=== PATIENT | male | born 1940 | race African-American/Black ===

== ENCOUNTER 2016-10-28 12:06 | Inpatient (IN) | payer MEDICARE, MEDICAID ==
[~2016-10-28] VITALS: Ht 182.9 cm; Wt 86.2 kg
[~2016-10-28 12:06] MED LIST: ALDACTONE25 MG ORAL; ASPIR 8181 MG ORAL; BICALUTAMIDE50 MG ORAL; CEPHALEXIN500 MG ORAL; COREG3.125 MG ORAL; COSOPT1 DRO2 BOTH EYES; DEPAKOTE250 MG ORAL; DEPAKOTE250 MG PO; DEPAKOTE500 MG ORAL; DEPAKOTE500 MG PO; DOCUSATE SODIU100 MG ORAL; FAMOTIDINE20 MG ORAL; FLOMAX0.4 MG ORAL; IMODIUM2 MG ORAL; LISINOPRIL2.5 MG ORAL; LISINOPRIL5 MG ORAL; LORAZEPAM2 MG ORAL; MIRALAX17 GM ORAL; RISPERDAL1 MG PO; RISPERDAL2 MG ORAL; TEMAZEPAM15 MG ORAL; TEMAZEPAM30 MG ORAL; TRUSOPT10 ML BOTH EYES; TYLENOL650 MG/20. ORAL
[2016-10-28] MEDS ORDERED: ROBAFEN100 MG/5 M PO (13:16)
[2016-10-28] MEDS ORDERED: AZITHROMYCIN250 MG ORAL (13:16)
--- NOTE | 2016-10-28 13:27 | Emergency Room Report ---
History of Present Illness General Chief Complaint: General Complaint Source: Patient, Medical Record Present Illness HPI 76YOM walk-in with accidental fall last night at [facility]. Denies hitting head, LOC. States he tripped, landed on knees. Not c/o of any pain, trauma. Walking at baseline today. Denies precipitating chest pain, SOB, palpitations, abd pain, nausea/vomiting, urinary complaints. No complaints. per PMD Dr Tran. Patient with frequent falls lately. [facility] requesting pacer interrogation prior to DC back to facility. Allergies: Coded Allergies: No Known Allergies (Unverified , 08/20/15) Patient History Past Medical History: HTN, CVA/TIA, seizures Past Surgical History: pacemaker Pertinent Family History: none Social History: Denies: alcohol use, drug use, smoking Immunizations: UTD Reviewed Nursing Documentation: PMH: Agreed, PSxH: Agreed Nursing Documentation-PMH Past Medical History: No History, Except For Hx Cardiac Problems: Yes - pacemaker Hx Pacemaker: Yes Hx Cancer: No Hx Gastrointestinal Problems: Yes - GI disorder Hx Neurological Problems: Yes - Parkinsons Hx Seizures: Yes Review of Systems All Other Systems: negative except mentioned in HPI Physical Exam Vital Signs Date Time Temp Pulse Resp B/P Pulse Ox O2 Delivery O2 Flow Rate FiO2 10/28/16 12:33 97.9 94 16 107/68 96 Room Air Sp02 EP Interpretation: reviewed, normal General Appearance: normal inspection, well appearing, no apparent distress, alert, GCS 15, non-toxic Head: normocephalic, atraumatic Eyes: bilateral eye EOMI, bilateral eye PERRL ENT: normal ENT inspection, hearing grossly normal, normal voice Neck: normal inspection, full range of motion, supple, no bony tend Respiratory: normal inspection, lungs clear, normal breath sounds, no respiratory distress, no retraction, no wheezing Cardiovascular #1: regular rate, rhythm, no edema Gastrointestinal: normal inspection, normal bowel sounds, non tender, soft, no guarding, no hernia Genitourinary: no CVA tenderness Musculoskeletal: normal inspection, back normal, normal range of motion, Shyla' s Sign negative Neurologic: normal inspection, alert, oriented x3, responsive, baggage inspector III-XII nml as tested, motor strength/tone normal, speech normal Psychiatric: normal inspection, judgement/insight normal, mood/affect normal Skin: normal inspection Lymphatic: normal inspection Medical Decision Making Medicare Attestation I Nico Hughes MD hereby attest that the medical record entry for date of service, 05/31/16 accurately reflects signatures/notations that I made in my capacity as MD when I treated/diagnosed the above listed Medicare beneficiary. I attest that this information is true, accurate and complete to the best of my knowledge. I understand that any falsification, omission, or concealment of material fact may subject me to administrative, civil, or criminal liability. This patient warrants hospital admission for extreme of age and has a condition that cannot be treated as outpatient. Diagnostic Impression: Primary Impression: Fall Qualified Codes: W19.XXXA - Unspecified fall, initial encounter ER Course Frequent falls - Atraumatic - Troponin 0. No other metabolic abnormality - CBC pending at time of endorsement and change of shift - Patient admitted for pacemaker upgrade/interrogation. Endorsed to Dr Tran at 2pm for tele admission EKG Diagnostic Results Rate: normal, other - PVCs Rhythm: NSR ST Segments: no acute changes Rhythm Strip Diag. Results EP Interpretation: yes Rate: 79 Rhythm: NSR, no ectopy, other Chest X-Ray Diagnostic Results EP Interpretation: Yes Findings: no consolidation, no effusion, no pneumothorax, no acute cardiopulmonary disease, other - pacemaker Number of Views: 1 Last Vital Signs Date Time Temp Pulse Resp B/P Pulse Ox O2 Delivery O2 Flow Rate FiO2 10/28/16 12:33 97.9 94 16 107/68 96 Room Air Status: improved Disposition: ADMITTED INPATIENT Condition: Serious NICO HUGHES M.D. October 28, 2016 13:27
[2016-10-28 13:54] VITALS: BP 124/63
[2016-10-28 14:14] LABS: ALANINE AMINOTRANSFERASE 11 U/L (3-41); ANION GAP 13 (5-15); ASPARTATE AMINO TRANSFERASE 24 U/L (5-40); CALCIUM 9.6 mg/dL (8.6-10.2); CARBON DIOXIDE 28 mEQ/L (20-30); CHLORIDE 96 mEQ/L (98-107); HEMOLYSIS 7; POTASSIUM 4.2 mEQ/L (3.4-4.9); SODIUM 137 mEQ/L (135-145)
[2016-10-28 14:15] LABS: TROPONIN I < 0.30 ng/mL (<=0.30)
[2016-10-28 14:17] LABS: BASOPHILS % (AUTO) 0.8 % (0.0-2.0); LYMPHOCYTES % (AUTO) 34.6 % (20.0-45.0); MEAN CORPUSCULAR HEMOGLOBIN 29.7 PG (27.0-31.0); MEAN CORPUSCULAR HGB CONC 33.4 G/DL (32.0-36.0); MEAN CORPUSCULAR VOLUME 89 FL (80-99); MEAN PLATELET VOLUME 6.8 FL (6.5-10.1); NEUTROPHILS % (AUTO) 46.6 % (45.0-75.0); PLATELET COUNT 149 K/UL (150-450); RED BLOOD COUNT 4.49 M/UL (4.70-6.10); RED CELL DISTRIBUTION WIDTH 13.3 % (11.6-14.8); WHITE BLOOD COUNT 6.3 K/UL (4.8-10.8)
[2016-10-28 14:26] LABS: CKMB < 1.5 ng/mL (< 6.7)
[2016-10-28] MEDS ORDERED: Mylanta II UD 30ml ORAL PRN (14:45)
[2016-10-28] MEDS ORDERED: Morphine Sulfate 2mg/ml Inj IVP PRN (14:45)
[2016-10-28] MEDS ORDERED: Miralax 17gm pkt ORAL PRN (14:45)
[2016-10-28] MEDS ORDERED: Nitroglycerin Subl 0.4mg tab (Bottle Of 25) SL PRN (14:45)
[2016-10-28] MEDS ORDERED: LORazepam Inj 2mg/ml 1ml IV PRN (14:45)
[2016-10-28] MEDS ORDERED: DuoNeb 0.5-3(2.5)mg/3ml neb HHN PRN (14:45)
[2016-10-28 15:00] VITALS: BP 119/61
[2016-10-28 16:00] VITALS: BP 106/59
[2016-10-28 17:00] VITALS: BP 100/52
--- NOTE | 2016-10-28 17:37 | Cardiac Electrophysiology PN ---
Subjective Subjective [id number]. Jonathan/ELINA pacer interrogation pending, EF 20% will be repeated Objective Last 24 Hour Vital Signs Date Time Temp Pulse Resp B/P Pulse Ox O2 Delivery O2 Flow Rate FiO2 10/28/16 17:00 61 14 100/52 100 Room Air 10/28/16 16:00 61 14 106/59 100 Room Air 10/28/16 15:00 64 14 119/61 100 Room Air 10/28/16 13:54 64 14 124/63 100 Room Air 10/28/16 12:33 97.9 94 16 107/68 96 Room Air Laboratory Tests Test 10/28/16 13:50 White Blood Count 6.3 K/UL (4.8-10.8) Red Blood Count 4.49 M/UL (4.70-6.10) L Hemoglobin 13.3 G/DL (14.2-18.0) L Hematocrit 40.0 % (42.0-52.0) L Mean Corpuscular Volume 89 FL (80-99) Mean Corpuscular Hemoglobin 29.7 PG (27.0-31.0) Mean Corpuscular Hemoglobin Concent 33.4 G/DL (32.0-36.0) Red Cell Distribution Width 13.3 % (11.6-14.8) Platelet Count 149 K/UL (150-450) L Mean Platelet Volume 6.8 FL (6.5-10.1) Neutrophils (%) (Auto) 46.6 % (45.0-75.0) Lymphocytes (%) (Auto) 34.6 % (20.0-45.0) Monocytes (%) (Auto) 14.0 % (1.0-10.0) H Eosinophils (%) (Auto) 4.0 % (0.0-3.0) H Basophils (%) (Auto) 0.8 % (0.0-2.0) Sodium Level 137 mEQ/L (135-145) Potassium Level 4.2 mEQ/L (3.4-4.9) Chloride Level 96 mEQ/L (98-107) L Carbon Dioxide Level 28 mEQ/L (20-30) Anion Gap 13 (5-15) Blood Urea Nitrogen 15 mg/dL (7-23) Creatinine 1.0 mg/dL (0.7-1.2) Estimat Glomerular Filtration Rate mL/min (>60) Glucose Level 93 mg/dL (74-106) Calcium Level 9.6 mg/dL (8.6-10.2) Total Bilirubin 0.4 mg/dL (0.0-1.2) Aspartate Amino Transf (AST/SGOT) 24 U/L (5-40) Alanine Aminotransferase (ALT/SGPT) 11 U/L (3-41) Alkaline Phosphatase 59 U/L (40-129) Total Creatine Kinase 83 U/L (38-174) Creatine Kinase MB < 1.5 ng/mL (< 6.7) Creatine Kinase MB Relative Index Troponin I < 0.30 ng/mL (<=0.30) Total Protein 7.0 g/dL (6.6-8.7) Albumin 3.6 g/dL (3.5-5.2) Globulin 3.4 g/dL Albumin/Globulin Ratio 1.0 (1.0-2.7) Free Prostate Specific Antigen Pending Percent Free Prostate Specific Ag Pending Prostate Specific Antigen Total Pending FERCHO DIAZ October 28, 2016 17:37
--- NOTE | 2016-10-28 17:51 | History and Physical ---
History of Present Illness General Date patient seen: October 28, 2016 Reason for Hospitalization: General Complaint Present Illness HPI 76 year old male with hx of end-stage heart disease/ EF 20%, s/p place maker, walk-in with accidental fall last night at [facility]. Denies hitting head, LOC. States he tripped, landed on knees. Not c/o of any pain, trauma. Walking at baseline today. . He has been eating less recently and had his walk has not been very steady therefore [facility] requesting pacer interrogation prior to DC back to facility. Allergies: Coded Allergies: No Known Allergies (Unverified , 08/20/15) Medication History Scheduled Aspirin* (Aspir 81*), 81 MG ORAL DAILY, (Reported) Azithromycin* (Zithromax*), 250 MG ORAL DAILY, (Reported) Bicalutamide* (Bicalutamide*), 50 MG ORAL DAILY, (Reported) Carvedilol (Coreg), 3.125 MG ORAL EVERY 12 HOURS Cephalexin* (Keflex*), 500 MG ORAL EVERY 12 HOURS Divalproex Sodium* (Depakote*), 500 MG ORAL Q12HR Docusate Sodium* (Docusate Sodium*), 100 MG ORAL TWICE A DAY, (Reported) Dorzolamide HCl/Timolol Maleat (Dorzolamide-Timolol Eye Drops), 1 DROP BOTH EYES AM, (Reported) Famotidine (Famotidine), 20 MG ORAL TWICE A DAY, (Reported) Guaifenesin (Robafen), 100 MG PO EVERY 6 HOURS, (Reported) Lisinopril* (Lisinopril*), 2.5 MG ORAL BID, (Reported) Lorazepam* (Lorazepam*), 2 MG ORAL BEDTIME, (Reported) Polyethylene Glycol* (Miralax*), GM ORAL DAILY, (Reported) Risperidone* (Risperdal*), 4 MG ORAL DAILY, (Reported) Spironolactone (Aldactone), 25 MG ORAL DAILY Tamsulosin HCl (Flomax), 0.4 MG ORAL DAILY Temazepam (Temazepam*), 30 MG ORAL BEDTIME, (Reported) Scheduled PRN Acetaminophen (Acetaminophen), 650 MG ORAL Q8H PRN for Prn Headache/Temp > 101, (Reported) Loperamide HCl (Loperamide), 2 MG ORAL Q4H PRN for loose BM, (Reported) Patient History Healthcare decision maker Resuscitation status Advanced Directive on File No Past Medical/Surgical History Past Medical/Surgical History: (1) Elevated PSA (2) Seizure disorder (3) Pacemaker (4) Cardiomyopathy (5) CVA (cerebral vascular accident) Review of Systems All Other Systems: negative except mentioned in HPI Physical Exam General Appearance: cachetic Lines, tubes and drains: peripheral HEENT: normocephalic, atraumatic Neck: non-tender, normal alignment, supple Respiratory/Chest: chest wall non-tender, lungs clear, normal breath sounds Cardiovascular/Chest: normal peripheral pulses, normal rate Abdomen: normal bowel sounds, non tender Genitourinary/Rectal: normal genital exam Extremities: normal range of motion, non-tender Skin Exam: normal pigmentation Neurologic: radiologic tech II-XII grossly normal Last 24 Hour Vital Signs Date Time Temp Pulse Resp B/P Pulse Ox O2 Delivery O2 Flow Rate FiO2 10/28/16 17:00 61 14 100/52 100 Room Air 10/28/16 16:00 61 14 106/59 100 Room Air 10/28/16 15:00 64 14 119/61 100 Room Air 10/28/16 13:54 64 14 124/63 100 Room Air 10/28/16 12:33 97.9 94 16 107/68 96 Room Air Laboratory Tests Test 10/28/16 13:50 White Blood Count 6.3 K/UL (4.8-10.8) Red Blood Count 4.49 M/UL (4.70-6.10) L Hemoglobin 13.3 G/DL (14.2-18.0) L Hematocrit 40.0 % (42.0-52.0) L Mean Corpuscular Volume 89 FL (80-99) Mean Corpuscular Hemoglobin 29.7 PG (27.0-31.0) Mean Corpuscular Hemoglobin Concent 33.4 G/DL (32.0-36.0) Red Cell Distribution Width 13.3 % (11.6-14.8) Platelet Count 149 K/UL (150-450) L Mean Platelet Volume 6.8 FL (6.5-10.1) Neutrophils (%) (Auto) 46.6 % (45.0-75.0) Lymphocytes (%) (Auto) 34.6 % (20.0-45.0) Monocytes (%) (Auto) 14.0 % (1.0-10.0) H Eosinophils (%) (Auto) 4.0 % (0.0-3.0) H Basophils (%) (Auto) 0.8 % (0.0-2.0) Sodium Level 137 mEQ/L (135-145) Potassium Level 4.2 mEQ/L (3.4-4.9) Chloride Level 96 mEQ/L (98-107) L Carbon Dioxide Level 28 mEQ/L (20-30) Anion Gap 13 (5-15) Blood Urea Nitrogen 15 mg/dL (7-23) Creatinine 1.0 mg/dL (0.7-1.2) Estimat Glomerular Filtration Rate mL/min (>60) Glucose Level 93 mg/dL (74-106) Calcium Level 9.6 mg/dL (8.6-10.2) Total Bilirubin 0.4 mg/dL (0.0-1.2) Aspartate Amino Transf (AST/SGOT) 24 U/L (5-40) Alanine Aminotransferase (ALT/SGPT) 11 U/L (3-41) Alkaline Phosphatase 59 U/L (40-129) Total Creatine Kinase 83 U/L (38-174) Creatine Kinase MB < 1.5 ng/mL (< 6.7) Creatine Kinase MB Relative Index Troponin I < 0.30 ng/mL (<=0.30) Total Protein 7.0 g/dL (6.6-8.7) Albumin 3.6 g/dL (3.5-5.2) Globulin 3.4 g/dL Albumin/Globulin Ratio 1.0 (1.0-2.7) Free Prostate Specific Antigen Pending Percent Free Prostate Specific Ag Pending Prostate Specific Antigen Total Pending Height (Feet): 6 Weight (Pounds): 190 Medications Current Medications Medications (Trade) Dose Ordered Sig/Maureen Route PRN Reason Start Time Stop Time Status Last Admin Dose Admin Acetaminophen (Tylenol) 650 mg Q4H PRN ORAL fever 10/28/16 14:45 11/27/16 14:44 Al Hydroxide/Mg Hydroxide (Mylanta II) 30 ml Q6H PRN ORAL dyspepsia 10/28/16 14:45 11/27/16 14:44 Albuterol/ Ipratropium (DuoNeb 0.5-3(2.5)mg/3ml) 3 ml Q4H PRN HHN Shortness of Breath 10/28/16 14:45 11/02/16 14:44 Bicalutamide (Casodex) 50 mg DAILY ORAL 10/29/16 09:00 11/03/16 08:59 Carvedilol (Coreg) 3.125 mg EVERY 12 HOURS ORAL 10/28/16 21:00 11/27/16 20:59 UNV Clonidine HCl (Catapres) 0.1 mg Q4H PRN ORAL For High Blood Pressure 10/28/16 14:45 11/27/16 14:44 Dextrose (Dextrose 50%) STAT PRN IV Hypoglycemia 10/28/16 14:45 11/27/16 14:44 Divalproex Sodium (Depakote) 500 mg Q12HR ORAL 10/28/16 21:00 11/27/16 20:59 Heparin Sodium (Porcine) (Heparin 5000 units/ml) 5,000 units EVERY 12 HOURS SUBQ 10/28/16 21:00 11/27/16 20:59 Lorazepam (Ativan 2mg/ml 1ml) 0.5 mg Q4H PRN IV For Anxiety 10/28/16 14:45 11/04/16 14:44 Morphine Sulfate (Morphine Sulfate) 1 mg Q4H PRN IVP For Pain 7-10 10/28/16 14:45 11/04/16 14:44 Nitroglycerin (Ntg) 0.4 mg Q5M X 3 DOSES PRN SL Prn Chest Pain 10/28/16 14:45 11/27/16 14:44 Ondansetron HCl (Zofran) 4 mg Q6H PRN IVP Nausea & Vomiting 10/28/16 14:45 11/27/16 14:44 Polyethylene Glycol (Miralax) 17 gm HSPRN PRN ORAL Constipation 10/28/16 14:45 11/27/16 14:44 Risperidone (RisperDAL) 4 mg DAILY ORAL 10/29/16 09:00 11/28/16 08:59 Tamsulosin HCl (Flomax) 0.4 mg DAILY ORAL 10/29/16 09:00 11/28/16 08:59 Temazepam (Restoril) 15 mg HSPRN PRN ORAL Insomnia 10/28/16 14:45 11/04/16 14:44 Assessment/Plan Problem List: (1) Near syncope ICD Codes: R55 - Syncope and collapse SNOMED: 529894507 (2) End-stage systolic heart failure ICD Codes: I50.20 - Unspecified systolic (congestive) heart failure SNOMED: 767177707 (3) Seizure disorder ICD Codes: G40.909 - Epilepsy, unspecified, not intractable, without status epilepticus SNOMED: 139046064 (4) Cardiomyopathy ICD Codes: I42.9 - Cardiomyopathy, unspecified SNOMED: 87137863 (5) Elevated PSA ICD Codes: R97.2 - Elevated prostate specific antigen [PSA] SNOMED: 284245747, 977543982 (6) Pacemaker ICD Codes: Z95.0 - Presence of cardiac pacemaker SNOMED: 21162681, 917084881, 955652909 Assessment/Plan telemetry monitoring repeat echo pacer interrogation pt/ot swallow evaluation RUIZ HOPPER October 28, 2016 17:51
[2016-10-28 18:12] VITALS: BP 128/64
[2016-10-28 20:28] VITALS: BP 101/43
[2016-10-28] MEDS: Heparin 5000 units/ml inj SUBQ SCH (21:00)
[2016-10-29 00:05] VITALS: BP 115/73
--- NOTE | 2016-10-29 03:18 | Consultation ---
DATE OF CONSULTATION: 10/28/2016 CARDIOLOGY CONSULTATION CONSULTING PHYSICIAN: Kevin Johnson M.D. REFERRING PHYSICIAN: Maria Isabel Tran M.D. REASON FOR CONSULTATION: Congestive heart failure and evaluation of the patient's pacemaker. HISTORY OF PRESENT ILLNESS: The patient is a 76-year-old gentleman with a history of hypertension, congestive heart failure, history of Jonathan permanent pacemaker placement, was brought to the emergency room after a fall. The patient denies loss of consciousness. In the emergency room, the patient's blood pressure was 107/68 with a pulse of 94 and respirations of 16. At the time of my evaluation, the patient is in the emergency room. Denies any chest pain or palpitations, and he states that he tripped and landed on his knees. REVIEW OF SYSTEMS: Review of systems was thoroughly performed and was negative other than what was mentioned in the history of present illness. PAST MEDICAL HISTORY: 1. Hypertension. 2. Congestive heart failure. 3. History of Jonathan permanent pacemaker implantation. 4. Seizure disorder. 5. History of TIA. FAMILY HISTORY: Noncontributory. SOCIAL HISTORY: Does not smoke or drink alcohol. PHYSICAL EXAMINATION: VITAL SIGNS: Blood pressure is 107/68, pulse 94, respirations 16, and temperature 97.9. HEAD AND NECK: Shows mild JVD. LUNGS: Decreased breath sounds. CARDIOVASCULAR: Shows regular S1 and S2 with no gallop or murmur. Pacemaker is in the left subclavian. ABDOMEN: Soft. EXTREMITIES: Has 1+ pitting edema. LABORATORY AND DIAGNOSTIC DATA: Labs show a white count of 6.2, hemoglobin 13.2, hematocrit 40, and platelet count is 440,000. Sodium 137, potassium was 4.2, BUN 15, and creatinine 1. Troponin is negative. ASSESSMENT AND PLAN: 1. Status post fall. The patient denies loss of consciousness. We will get an echocardiogram to evaluate for ejection fraction and wall motion abnormality again. We will interrogate the pacemaker. The patient had cardiac arrhythmias. We will also completely rule out myocardial infarction protocol. 2. History of severe cardiomyopathy with ejection fraction of around 20%. The echocardiogram will be repeated, the previous examination was a year ago. At that time, the patient was on Coreg, lisinopril, and Aldactone. 3. Status post ELINA/Jonathan permanent pacemaker. The interrogation is pending. 4. History of seizure disorder. Thank you very much, Dr. Tran, for allowing me to participate in the care of this patient. Please do not hesitate to contact me for any questions regarding my evaluation. Kevin Johnson M.D. DR: CHRIS JOB#: [id number] CC:
[2016-10-29 03:47] VITALS: BP 148/88
[2016-10-29 08:00] VITALS: BP 117/62
[2016-10-29 08:06] LABS: BASOPHILS % (AUTO) 1.3 % (0.0-2.0); EOSINOPHILS % (AUTO) 4.7 % (0.0-3.0); LYMPHOCYTES % (AUTO) 41.5 % (20.0-45.0); MEAN CORPUSCULAR HEMOGLOBIN 30.3 PG (27.0-31.0); MEAN CORPUSCULAR VOLUME 89 FL (80-99); MEAN PLATELET VOLUME 6.6 FL (6.5-10.1); NEUTROPHILS % (AUTO) 39.5 % (45.0-75.0); PLATELET COUNT 152 K/UL (150-450); RED BLOOD COUNT 4.35 M/UL (4.70-6.10); RED CELL DISTRIBUTION WIDTH 13.3 % (11.6-14.8); WHITE BLOOD COUNT 5.4 K/UL (4.8-10.8)
[2016-10-29] MEDS: Heparin 5000 units/ml inj SUBQ SCH (08:24)
[2016-10-29 08:25] LABS: INR 1.1 (0.9-1.1); PROTHROMBIN TIME 10.8 SEC (9.30-11.50)
[2016-10-29 08:26] LABS: TROPONIN I < 0.30 ng/mL (<=0.30)
[2016-10-29] MEDS ORDERED: Bicalutamide 50mg tab ORAL SCH (09:00)
[2016-10-29] MEDS ORDERED: Tamsulosin 0.4mg cap ORAL SCH (09:00)
[2016-10-29 09:11] LABS: ALANINE AMINOTRANSFERASE 9 U/L (3-41); ALBUMIN/GLOBULIN RATIO 0.9 (1.0-2.7); ANION GAP 17 (5-15); ASPARTATE AMINO TRANSFERASE 23 U/L (5-40); CALCIUM 9.6 mg/dL (8.6-10.2); CARBON DIOXIDE 23 mEQ/L (20-30); CHLORIDE 99 mEQ/L (98-107); CHOLESTEROL 157 mg/dL (< 200); CREATININE 0.9 mg/dL (0.7-1.2); HEMOLYSIS 8; LDL CHOLESTEROL (CALC.) 102 mg/dL (60-99); POTASSIUM 5.1 mEQ/L (3.4-4.9); SODIUM 139 mEQ/L (135-145); TOTAL PROTEIN 6.9 g/dL (6.6-8.7)
[2016-10-29 09:24] LABS: PSA % FREE >10.0 % (.); PSA FREE 0.01 ng/mL; PSA TOTAL <0.1 ng/mL (0.0-4.0)
--- NOTE | 2016-10-29 11:28 | Diagnostic Imaging Report ---
APPROVED REPORT CPT Code: 39470 Vascular Symptoms Dizziness and Vertigo CAROTID (BILATERAL) - Imaging reveals no significant plaque within the right and left extracranial carotid arteries. The Doppler spectral flow analysis is within normal limits throughout the extracranial carotid arteries bilaterally. VERTEBRAL- The vertebral arteries are within normal limits.
[2016-10-29 11:34] VITALS: BP 128/61
--- NOTE | 2016-10-29 12:38 | Diagnostic Imaging Report ---
Indications: Chest pain Technique: Portable AP chest Findings: Comparison: 10/30/2015 Cardiac silhouette remains upper limits of normal in size. Pulmonary vasculature remains within normal limits. Lungs and pleura remain clear. Mild elongation of the aortic arch, left chest wall pacemaker again noted.. IMPRESSION: No evidence of acute disease, unchanged Stable chronic changes as described
--- NOTE | 2016-10-29 13:24 | Pulmonology Progress Note ---
Assessment/Plan Problems: (1) Near syncope (2) End-stage systolic heart failure (3) Seizure disorder (4) Cardiomyopathy (5) Elevated PSA (6) Pacemaker Assessment/Plan pace maker was checked swallow study noted chopped food and nectar thick liquids simplify cardiac meds. Subjective ROS Limited/Unobtainable: No Interval Events: doing better Allergies: Coded Allergies: No Known Allergies (Unverified , 08/20/15) Objective Last 24 Hour Vital Signs Date Time Temp Pulse Resp B/P Pulse Ox O2 Delivery O2 Flow Rate FiO2 10/29/16 11:34 97.9 62 19 128/61 100 Room Air 10/29/16 08:25 65 117/62 10/29/16 08:00 97.7 65 20 117/62 97 Room Air 10/29/16 06:38 66 18 Room Air 10/29/16 03:52 61 10/29/16 03:47 98.3 62 19 148/88 94 Room Air 10/29/16 00:05 97.5 56 20 115/73 98 Room Air 10/28/16 23:47 64 10/28/16 21:00 101/43 10/28/16 20:28 98.2 60 21 101/43 95 Room Air 10/28/16 20:01 60 10/28/16 18:12 97.3 63 20 128/64 95 Room Air 10/28/16 17:45 68 20 111/58 99 Room Air 10/28/16 17:00 61 14 100/52 100 Room Air 10/28/16 16:00 61 14 106/59 100 Room Air 10/28/16 15:00 64 14 119/61 100 Room Air 10/28/16 13:54 64 14 124/63 100 Room Air Intake and Output 10/28/16 10/29/16 19:00 07:00 Intake Total 240 ml Output Total 500 ml Balance -260 ml Intake Oral 240 ml Output Urine Total 500 ml # Voids 3 General Appearance: WD/WN HEENT: normocephalic, atraumatic Respiratory/Chest: chest wall non-tender, lungs clear Cardiovascular: normal peripheral pulses, normal rate Abdomen: normal bowel sounds, soft, non tender Genitourinary: normal external genitalia Extremities: no cyanosis Skin: no rash Laboratory Tests 10/28/16 13:50: White Blood Count 6.3, Red Blood Count 4.49L, Hemoglobin 13.3L, Hematocrit 40.0L , Mean Corpuscular Volume 89, Mean Corpuscular Hemoglobin 29.7, Mean Corpuscular Hemoglobin Concent 33.4, Red Cell Distribution Width 13.3, Platelet Count 149L, Mean Platelet Volume 6.8, Neutrophils (%) (Auto) 46.6, Lymphocytes ( %) (Auto) 34.6, Monocytes (%) (Auto) 14.0H, Eosinophils (%) (Auto) 4.0H, Basophils (%) (Auto) 0.8, Sodium Level 137, Potassium Level 4.2, Chloride Level 96L, Carbon Dioxide Level 28, Anion Gap 13, Blood Urea Nitrogen 15, Creatinine 1.0, Estimat Glomerular Filtration Rate , Glucose Level 93, Calcium Level 9.6, Total Bilirubin 0.4, Aspartate Amino Transf (AST/SGOT) 24, Alanine Aminotransferase (ALT/SGPT) 11, Alkaline Phosphatase 59, Total Creatine Kinase 83, Creatine Kinase MB < 1.5, Creatine Kinase MB Relative Index , Troponin I < 0.30, Total Protein 7.0, Albumin 3.6, Globulin 3.4, Albumin/Globulin Ratio 1.0, Free Prostate Specific Antigen 0.01, Percent Free Prostate Specific Ag >10.0, Prostate Specific Antigen Total <0.1 10/29/16 06:50: White Blood Count 5.4, Red Blood Count 4.35L, Hemoglobin 13.2L, Hematocrit 38.7L , Mean Corpuscular Volume 89, Mean Corpuscular Hemoglobin 30.3, Mean Corpuscular Hemoglobin Concent 34.0, Red Cell Distribution Width 13.3, Platelet Count 152, Mean Platelet Volume 6.6, Neutrophils (%) (Auto) 39.5L, Lymphocytes ( %) (Auto) 41.5, Monocytes (%) (Auto) 13.0H, Eosinophils (%) (Auto) 4.7H, Basophils (%) (Auto) 1.3, Sodium Level 139, Potassium Level 5.1H, Chloride Level 99, Carbon Dioxide Level 23, Anion Gap 17H, Blood Urea Nitrogen 16, Creatinine 0.9, Estimat Glomerular Filtration Rate , Glucose Level 83, Calcium Level 9.6, Total Bilirubin 0.4, Aspartate Amino Transf (AST/SGOT) 23, Alanine Aminotransferase (ALT/SGPT) 9, Alkaline Phosphatase 56, Troponin I < 0.30, Total Protein 6.9, Albumin 3.4L, Globulin 3.5, Albumin/Globulin Ratio 0.9L, Prothrombin Time 10.8, Prothromb Time International Ratio 1.1, Activated Partial Thromboplast Time 26, Pro-B-Type Natriuretic Peptide 2700H, Triglycerides Level 78, Cholesterol Level 157, LDL Cholesterol 102H, HDL Cholesterol 39, Cholesterol/HDL Ratio 4.0, Thyroid Stimulating Hormone (TSH) 4.470 Current Medications Medications (Trade) Dose Ordered Sig/Maureen Route PRN Reason Start Time Stop Time Status Last Admin Dose Admin Acetaminophen (Tylenol) 650 mg Q4H PRN ORAL fever 10/28/16 14:45 11/27/16 14:44 Al Hydroxide/Mg Hydroxide (Mylanta II) 30 ml Q6H PRN ORAL dyspepsia 10/28/16 14:45 11/27/16 14:44 Albuterol/ Ipratropium (DuoNeb 0.5-3(2.5)mg/3ml) 3 ml Q4H PRN HHN Shortness of Breath 10/28/16 14:45 11/02/16 14:44 Bicalutamide (Casodex) 50 mg DAILY ORAL 10/29/16 09:00 11/03/16 08:59 10/29/16 08:25 Carvedilol (Coreg) 3.125 mg EVERY 12 HOURS ORAL 10/28/16 21:00 11/27/16 20:59 10/29/16 08:25 Clonidine HCl (Catapres) 0.1 mg Q4H PRN ORAL For High Blood Pressure 10/28/16 14:45 11/27/16 14:44 Dextrose (Dextrose 50%) STAT PRN IV Hypoglycemia 10/28/16 14:45 11/27/16 14:44 Divalproex Sodium (Depakote) 500 mg Q12HR ORAL 10/28/16 21:00 11/27/16 20:59 10/29/16 08:29 Heparin Sodium (Porcine) (Heparin 5000 units/ml) 5,000 units EVERY 12 HOURS SUBQ 10/28/16 21:00 11/27/16 20:59 10/29/16 08:24 Lorazepam (Ativan 2mg/ml 1ml) 0.5 mg Q4H PRN IV For Anxiety 10/28/16 14:45 11/04/16 14:44 Morphine Sulfate (Morphine Sulfate) 1 mg Q4H PRN IVP For Pain 7-10 10/28/16 14:45 11/04/16 14:44 Nitroglycerin (Ntg) 0.4 mg Q5M X 3 DOSES PRN SL Prn Chest Pain 10/28/16 14:45 11/27/16 14:44 Ondansetron HCl (Zofran) 4 mg Q6H PRN IVP Nausea & Vomiting 10/28/16 14:45 11/27/16 14:44 Polyethylene Glycol (Miralax) 17 gm HSPRN PRN ORAL Constipation 10/28/16 14:45 11/27/16 14:44 Risperidone (RisperDAL) 4 mg DAILY ORAL 10/29/16 09:00 11/28/16 08:59 10/29/16 08:26 Tamsulosin HCl (Flomax) 0.4 mg DAILY ORAL 10/29/16 09:00 11/28/16 08:59 10/29/16 08:29 Temazepam (Restoril) 15 mg HSPRN PRN ORAL Insomnia 10/28/16 14:45 11/04/16 14:44 10/28/16 23:43 RUIZ HOPPER October 29, 2016 13:24
--- NOTE | 2016-10-29 14:03 | Cardiac Electrophysiology PN ---
Assessment/Plan Assessment/Plan 1. Status post fall. The patient denies loss of consciousness. Echocardiogram today showed EF 25-30%. Ruled out for LA. ICD interrogation showed no arrhythmias. 2. Severe cardiomyopathy with ejection fraction of 25-30% with BNP 2600. Continue Coreg 3.125 bid. Add lisinopril, Lasix and Aldactone. 3. Status post upgrading pacemaker to Biotronic ICD by me on 04/09/2016 at [facility]. The interrogation today showed normal function. 4. History of seizure disorder. DW Dr Tran and RN Subjective Subjective Comfortable in NAD. ICD was interrogated today.No arrhythmias on tele. Objective Last 24 Hour Vital Signs Date Time Temp Pulse Resp B/P Pulse Ox O2 Delivery O2 Flow Rate FiO2 10/29/16 11:34 97.9 62 19 128/61 100 Room Air 10/29/16 08:25 65 117/62 10/29/16 08:00 97.7 65 20 117/62 97 Room Air 10/29/16 06:38 66 18 Room Air 10/29/16 03:52 61 10/29/16 03:47 98.3 62 19 148/88 94 Room Air 10/29/16 00:05 97.5 56 20 115/73 98 Room Air 10/28/16 23:47 64 10/28/16 21:00 101/43 10/28/16 20:28 98.2 60 21 101/43 95 Room Air 10/28/16 20:01 60 10/28/16 18:12 97.3 63 20 128/64 95 Room Air 10/28/16 17:45 68 20 111/58 99 Room Air 10/28/16 17:00 61 14 100/52 100 Room Air 10/28/16 16:00 61 14 106/59 100 Room Air 10/28/16 15:00 64 14 119/61 100 Room Air Intake and Output 10/28/16 10/29/16 19:00 07:00 Intake Total 240 ml Output Total 500 ml Balance -260 ml Intake Oral 240 ml Output Urine Total 500 ml # Voids 3 Laboratory Tests Test 10/29/16 06:50 White Blood Count 5.4 K/UL (4.8-10.8) Red Blood Count 4.35 M/UL (4.70-6.10) L Hemoglobin 13.2 G/DL (14.2-18.0) L Hematocrit 38.7 % (42.0-52.0) L Mean Corpuscular Volume 89 FL (80-99) Mean Corpuscular Hemoglobin 30.3 PG (27.0-31.0) Mean Corpuscular Hemoglobin Concent 34.0 G/DL (32.0-36.0) Red Cell Distribution Width 13.3 % (11.6-14.8) Platelet Count 152 K/UL (150-450) Mean Platelet Volume 6.6 FL (6.5-10.1) Neutrophils (%) (Auto) 39.5 % (45.0-75.0) L Lymphocytes (%) (Auto) 41.5 % (20.0-45.0) Monocytes (%) (Auto) 13.0 % (1.0-10.0) H Eosinophils (%) (Auto) 4.7 % (0.0-3.0) H Basophils (%) (Auto) 1.3 % (0.0-2.0) Prothrombin Time 10.8 SEC (9.30-11.50) Prothromb Time International Ratio 1.1 (0.9-1.1) Activated Partial Thromboplast Time 26 SEC (23-33) Sodium Level 139 mEQ/L (135-145) Potassium Level 5.1 mEQ/L (3.4-4.9) H Chloride Level 99 mEQ/L (98-107) Carbon Dioxide Level 23 mEQ/L (20-30) Anion Gap 17 (5-15) H Blood Urea Nitrogen 16 mg/dL (7-23) Creatinine 0.9 mg/dL (0.7-1.2) Estimat Glomerular Filtration Rate mL/min (>60) Glucose Level 83 mg/dL (74-106) Calcium Level 9.6 mg/dL (8.6-10.2) Total Bilirubin 0.4 mg/dL (0.0-1.2) Aspartate Amino Transf (AST/SGOT) 23 U/L (5-40) Alanine Aminotransferase (ALT/SGPT) 9 U/L (3-41) Alkaline Phosphatase 56 U/L (40-129) Troponin I < 0.30 ng/mL (<=0.30) Pro-B-Type Natriuretic Peptide 2700 pg/mL (0-450) H Total Protein 6.9 g/dL (6.6-8.7) Albumin 3.4 g/dL (3.5-5.2) L Globulin 3.5 g/dL Albumin/Globulin Ratio 0.9 (1.0-2.7) L Triglycerides Level 78 mg/dL (< 150) Cholesterol Level 157 mg/dL (< 200) LDL Cholesterol 102 mg/dL (60-99) H HDL Cholesterol 39 mg/dL (> 60) Cholesterol/HDL Ratio 4.0 (3.3-4.4) Thyroid Stimulating Hormone (TSH) 4.470 uIU/mL (0.300-4.500) Objective HEAD AND NECK: Shows mild JVD. LUNGS: Decreased breath sounds. CARDIOVASCULAR: Shows regular S1 and S2 with no gallop or murmur. ICD is in the left subclavian. ABDOMEN: Soft. EXTREMITIES: Has 1+ pitting edema. FERCHO DIAZ October 29, 2016 14:03
[2016-10-29 15:45] VITALS: BP 110/58
--- NOTE | 2016-10-30 17:40 | Cardiology Report ---
APPROVED REPORT EKG Measurement Heart [id number] Sinus rhythm with premature supraventricular complexes Right superior axis deviation Left bundle branch block Abnormal ECG
--- NOTE | 2016-11-01 08:38 | Cardiology Report ---
APPROVED REPORT EXAM: Two-dimensional and M-mode echocardiogram with Doppler and color Doppler. INDICATION LV function M-Mode DIMENSIONS IVSd1.4 (0.7-1.1cm)Left Atrium (MM)3.6 (1.6-4.0cm) LVDd5.6 (3.5-5.6cm)Aortic Root4.0 (2.0-3.7cm) PWd1.3 (0.7-1.1cm)Aortic Cusp Exc.2.6 (1.5-2.0cm) LVDs5.2 (2.5-4.0cm) PWs1.6 cm Other Information Technically limited study due to poor acoustical windows. Normal left ventricular chamber size. Global left ventricular hypokinesis. Apical dyskinesis. Akinesis of distal segments. Left ventricular ejection fraction estimated to be 25-30 %. Study quality precludes accurate assessment of regional wall motion. Mild left ventricular hypertrophy. Anterior Echo-free space, may be due to pericardial fat or effusion. All other cardiac chamber sizes are within normal limits. Focal aortic valve sclerosis with adequate cusp excursion. Thickened mitral valve leaflets with normal excursion. Mitral annulus and aortic root calcification. Aortic root dilatation. Pulmonic valve not well visualized. Normal tricuspid valve structure. IVC at normal size with physiologic collapse. Pacemaker wire present in the right side chambers. A color flow and spectral Doppler study was performed and revealed: Mild aortic regurgitation. Moderate mitral regurgitation. Mitral diastolic velocities suggest reduced left ventricular relaxation c/w LV diastolic dysfunction. Mild tricuspid regurgitation. Tricuspid systolic velocities suggests peak right ventricular systolic pressure of 44 mmHg, consistent with mild to moderate pulmonary hypertension.
--- NOTE | 2016-11-01 10:44 | Discharge Summary ---
Discharge Summary Hospital Course Date of Admission October 28, 2016 at 16:55 Date of Discharge October 29, 2016 at 15:45 Admitting Diagnosis weakness HPI Van Kidd Jr is a 76 year old male who was admitted on October 28, 2016 at 16: 55 for Weakness Hospital Course dc summary #[id number] Discharge Medications Continued Medications: Aspirin* (Aspir 81*) 81 Mg Tablet.dr 81 MG ORAL DAILY, TAB Bicalutamide* (Bicalutamide*) 50 Mg Tablet 50 MG ORAL DAILY, TAB Divalproex Sodium* (Depakote*) 250 Mg Tablet.dr 500 MG ORAL Q12HR, #60 TAB Dorzolamide HCl/Timolol Maleat (Dorzolamide-Timolol Eye Drops) 1 Drop Drops 1 DROP BOTH EYES AM, ML Risperidone* (Risperdal*) 2 Mg Tablet 4 MG ORAL DAILY, #30 TAB 0 Refills Tamsulosin HCl (Flomax) 0.4 Mg Cap 0.4 MG ORAL DAILY, #30 CAP Discharge Condition Upon Discharge: stable Discharge Disposition Patient was discharged to Assisted Living Discharge Diagnoses: Discharge Instructions Discharge Instructions Special Instructions I have been assigned to complete a D/C Summary on this account. I was not involved in the patient management Precious Yoon NP (Vanchtein) November 01, 2016 10:44
--- NOTE | 2016-11-02 03:59 | Discharge Summary 2 SIG ---
DATE OF ADMISSION: 10/28/2016 DATE OF DISCHARGE: 10/29/2016 REASON FOR ADMISSION: 76-year-old male sustained accidental fall last night in an assisted living where he resides. He denied hitting his head or altered level of consciousness. He stated that he tripped and landed on his knees. No headache. No change in vision. No dizziness, no lightheadedness. . No blackout. No complaint of any pain. No evidence of trauma. He was walking at baseline the next day. He denied precipitating chest pain, shortness of breath, palpitations, abdominal pain, nausea, vomiting and urinary complaints. The patient suffered from frequent falls lately. The patient needed a pacemaker interrogation prior to discharge back to the facility. Patient admitted to telemetry. ADMITTING DIAGNOSES: 1. Status post fall. 2. Near syncope. 3. Seizure disorder. HOSPITAL STAY: The patient was admitted to telemetry floor. EKG revealed sinus rhythm with premature ventricular contraction. Chest x-ray was negative for any acute cardiopulmonary disease. Troponin was negative. Cardiology consult was requested. Echocardiogram revealed an ejection fraction of 25% to 30% with right ventricular systolic pressure of 44 consistent with mild to moderate pulmonary hypertension. The Echo also revealed moderate mitral regurgitation and global left ventricular hypokinesis. The patient was ruled out for acute myocardial infarction with two negative serial troponin and no ischemic changes on EKG. Lipid panel was stable. Beta-joe was continued. The patient also had recent upgrade of the pacemaker to Biotronik ICD by Dr. Johnson , artificial glass eye maker, on 04/09/2016. Interrogation was done during this admission, which revealed no evidence of arrhythmia. The patient to follow up as outpatient with the artificial glass eye maker. Consider to add a low dose of YANNI inhibitor and diuretic for medical management of systolic heart failure. Seizure precautions were maintained. Depakote continued. No evidence of seizure activity while in the hospital. The patient undergone PT and OT evaluation. The patient also undergone swallow evaluation and diet was changed as per speech therapist recommendations. DVT prophylaxis was provided. The patient was stable for transfer back to assisted living. Maintain fall precaution. Due to the rapid and unexpected improvement in the patient's condition, the patient was discharged in one day. DISCHARGE DIAGNOSES: 1. Status post fall. 2. Near syncope. 3. Severe cardiomyopathy. 4. End-stage systolic heart failure. 5. Status post upgraded pacemaker to Biotronik implantable cardioverter defibrillator. 6. Mild to moderate pulmonary hypertension. DISCHARGE MEDICATIONS: See medication reconciliation list. DISCHARGE INSTRUCTIONS: The patient was discharged to assisted living. FOLLOWUP: Follow up with the primary medical doctor. Fall precaution. Diet as per ST recommendation. Maria Isabel Tran M.D. I have been assigned to dictate discharge summary on this account and I was not involved in the patient's management. Precious Yoon (Dennisejosh NZakPZak DR: RIKKI JOB#: [id number] CC: SELVIN
== END 2016-10-29 15:45 | disposition home or self-care (01) | DRG 204 ==
LOC: ENRESERVDT → ENRESERVTM → EMR 13:34 → EDBEDREQ 16:44 → 2E 16:55 → EDBEDREQ 17:37
DX: R55 Syncope and collapse (principal); I42.9 Cardiomyopathy, unspecified; I50.22 Chronic systolic (congestive) heart failure; G40.909 Epilepsy, unspecified, not intractable, without status epilepticus; Z91.81 History of falling; I34.0 Nonrheumatic mitral (valve) insufficiency; I27.2 Other secondary pulmonary hypertension; Z86.73 Personal history of transient ischemic attack (TIA), and cerebral infarction without residual deficits; R97.20 Elevated prostate specific antigen [PSA]; Z95.810 Presence of automatic (implantable) cardiac defibrillator
CPT/HCPCS: 36415; 71010; 80053; 80061; 82550; 82553; 83880; 84153; 84154; 84443; 84484; 85025; 85610; 85730; 87081; 93005; 93306; 93880; 94664; J7620

== ENCOUNTER 2017-03-28 15:00 | Inpatient (IN) | payer MEDICAID, MEDICARE ==
[~2017-03-28] VITALS: Ht 175.3 cm; Wt 79.4 kg
[~2017-03-28 15:00] MED LIST changes: +AZITHROMYCIN250 MG ORAL; +ROBAFEN100 MG/5 M PO
--- NOTE | 2017-03-28 15:14 | Emergency Room Report ---
History of Present Illness General Chief Complaint: To Be Triaged Source: Patient, PMD Present Illness HPI [id number] sent by Dr Tran for left femoral neck fx, dx on outside facility xray earlier today. Patient endorses living in [facility], fell 4 days ago on left side. Also hit front of head. Denies LOC, being on ASA, AC C/o pain to outter left thigh Unable to walk Cant elevate left leg Allergies: Coded Allergies: No Known Allergies (Unverified , 08/20/15) Patient History Past Medical History: old chart reviewed, unable to obtain Past Surgical History: none Pertinent Family History: none Social History: Denies: smoking, alcohol use, drug use Immunizations: UTD Reviewed Nursing Documentation: PMH: Agreed, PSxH: Agreed Nursing Documentation-PMH Hx Cardiac Problems: Yes - pacemaker Hx Hypertension: Yes Hx Pacemaker: Yes Hx Cancer: No Hx Gastrointestinal Problems: Yes - GI disorder Hx Neurological Problems: Yes - Parkinsons Hx Seizures: Yes Physical Exam Sp02 EP Interpretation: reviewed, normal General Appearance: normal inspection, well appearing, no apparent distress, alert, GCS 15, non-toxic Head: normocephalic, atraumatic Eyes: bilateral eye PERRL, bilateral eye EOMI ENT: normal ENT inspection Neck: normal inspection, full range of motion, supple, no bony tend Respiratory: normal inspection, lungs clear, normal breath sounds, no respiratory distress, no retraction, no wheezing Cardiovascular #1: regular rate, rhythm, no edema Gastrointestinal: normal inspection, normal bowel sounds, non tender, soft, no guarding, no hernia Genitourinary: no CVA tenderness Musculoskeletal: normal inspection, back normal, normal range of motion, Shyla' s Sign negative, other - Left leg: No obvious signs of trauma. No swelling, ecchymoses. No pelvic instability. Mild ttp to outter left thigh. Unable to elevate left leg off stretcher. Able to dorsiflex, flex, foot. 2+ dorsalis pedis and popliteal pulse. Neurologic: normal inspection, alert, oriented x3, responsive, marble installer III-XII nml as tested, motor strength/tone normal, speech normal Psychiatric: normal inspection, judgement/insight normal, mood/affect normal Skin: normal inspection, normal color, no rash Lymphatic: normal inspection Medical Decision Making Medicare Attestation I Nico Warren MD hereby attest that the medical record entry for date of service, 03/28/17 accurately reflects signatures/notations that I made in my capacity as MD when I treated/diagnosed the above listed Medicare beneficiary. I attest that this information is true, accurate and complete to the best of my knowledge. I understand that any falsification, omission, or concealment of material fact may subject me to administrative, civil, or criminal liability. This patient warrants hospital admission for extreme of age and has a condition that cannot be treated as outpatient. Diagnostic Impression: Primary Impression: Fracture of femoral neck, left, closed Qualified Codes: S72.002A - Fracture of unspecified part of neck of left femur , initial encounter for closed fracture ER Course Pelvic AP and left femoral series obtained in ED per Dr Keane request Patient NPO after midnight Coags, T&S sent Patient consented for left hemiarthroplasty Endorsed to Dr Tran for med/srug admit at 335pm Dr Keane consulted AP pelvis 1 view ED review Left femoral neck fx. No dislocation. No soft tissue injury Dr Nico Warren MD 2 views left femur 2 views ED review Left fem neck fx. No dislocation. No soft tissue injury Dr Nico Warren MD EKG Diagnostic Results Rate: normal Rhythm: NSR ST Segments: no acute changes ASA given to the pt in ED: No Rhythm Strip Diag. Results EP Interpretation: yes Rate: 65 Rhythm: NSR, no PVC's, no ectopy Chest X-Ray Diagnostic Results Chest X-Ray Diagnostic Results : Chest X-Ray Ordered: Yes # of Views/Limited/Complete: 1 View Indication: Other - Admit EP Interpretation: Yes Interpretation: no consolidation, no effusion, no pneumothorax, no acute cardiopulmonary disease, other - pacemaker Impression: No acute disease Electronically Signed by: Dr Nico Warren Status: improved Disposition: ADMITTED INPATIENT Condition: NICO Hawk M.D. Mar 28, 2017 15:14
[2017-03-28] MEDS ORDERED: Miralax 17gm pkt ORAL PRN (15:30)
[2017-03-28] MEDS ORDERED: Zolpidem 5mg tab ORAL PRN (15:30)
[2017-03-28] MEDS ORDERED: Morphine Sulfate 4mg/ml Inj IVP PRN (15:30)
[2017-03-28] MEDS ORDERED: LORazepam Inj 2mg/ml 1ml IV PRN (15:30)
[2017-03-28] MEDS ORDERED: Mylanta II UD 30ml ORAL PRN (15:30)
[2017-03-28] MEDS ORDERED: oxyCODONE HCL/Acetaminophen 5/325mg ORAL ONE (15:45)
--- NOTE | 2017-03-28 16:03 | Diagnostic Imaging Report ---
Indication: Pain Findings: 2 views of the left femur were obtained. There is an acute fracture of the left femoral neck with mild displacement. Bones are osteopenic. Right hip is unremarkable. Impression: Acute left femoral neck fracture
--- NOTE | 2017-03-28 16:12 | Diagnostic Imaging Report ---
Indication: pain Findings: Single AP view of the pelvis was performed. There is acute intracapsular fracture of the left femoral neck. Bones are osteopenic. Degenerative changes of the lower lumbar spine are present. Impression: Acute fracture left femoral neck
--- NOTE | 2017-03-28 16:13 | Diagnostic Imaging Report ---
Indication: Dyspnea Comparison: 10/28/16 A single view chest radiograph was obtained. Findings: No definite infiltrate or pulmonary vascular congestion identified. There is a pacemaker in the left anterior chest wall. The heart is enlarged. The aorta is mildly enlarged consistent with atherosclerotic vascular disease. The bones are osteopenic. Impression: No acute disease
--- NOTE | 2017-03-28 16:25 | Diagnostic Imaging Report ---
Indication: Headache. Head trauma Technique: Contiguous 5 mm thick transaxial imaging of the head obtained in a Siemens Sensation [address] scanner. Soft tissue and bone windows generated. Total Dose length Product (DLP): [address] Dose Index Volume (CTDIvol): 70.38, 0.15 mGy Comparison: 10/30/15 Findings: There is moderate prominence of the ventricles, basal cisterns, and cerebral sulci consistent with atrophy. Moderate, nonspecific, white matter hypoattenuation is noted throughout the brain consistent with chronic small vessel disease. There is no midline shift, edema, acute hemorrhage, mass effect, or abnormal extra-axial fluid collections. Bones and extra osseous soft tissues are unremarkable. Impression: No acute intracranial bleed, mass effect or edema. Moderate atrophy of the brain. Evidence of chronic small vessel disease involving white matter tracts. The CT scanner at [facility] is accredited by the [employer] and the scans are performed using dose optimization techniques as appropriate to a performed exam including Automatic Exposure control.
[2017-03-28 16:27] LABS: MEAN CORPUSCULAR HEMOGLOBIN 29.3 PG (27.0-31.0); MEAN CORPUSCULAR HGB CONC 31.5 G/DL (32.0-36.0); MEAN CORPUSCULAR VOLUME 93 FL (80-99); MEAN PLATELET VOLUME 5.9 FL (6.5-10.1); PLATELET COUNT 96 K/UL (150-450); RED BLOOD COUNT 4.22 M/UL (4.70-6.10); RED CELL DISTRIBUTION WIDTH 13.9 % (11.6-14.8); WHITE BLOOD COUNT 7.8 K/UL (4.8-10.8)
[2017-03-28 16:36] LABS: INR 1.2 (0.9-1.1); PROTHROMBIN TIME 12.4 SEC (9.30-11.50)
[2017-03-28 16:50] LABS: ALANINE AMINOTRANSFERASE 6 U/L (3-41); ANION GAP 12 (5-15); ASPARTATE AMINO TRANSFERASE 21 U/L (5-40); CALCIUM 9.6 mg/dL (8.6-10.2); CARBON DIOXIDE 25 mEQ/L (20-30); CHLORIDE 101 mEQ/L (98-107); HEMOLYSIS 79; POTASSIUM 4.7 mEQ/L (3.4-4.9); SODIUM 138 mEQ/L (135-145); TOTAL PROTEIN 6.6 g/dL (6.6-8.7)
[2017-03-28 17:00] LABS: CKMB < 1.5 ng/mL (< 6.7)
[2017-03-28 17:18] LABS: BAND NEUTROPHILS % (MANUAL) 6 % (0-8); EOSINOPHILS % (MANUAL) 1 % (0-3); LYMPHOCYTES % (MANUAL) 25 % (20-45); NEUTROPHILS % (MANUAL) 54 % (45-75); TOTAL CELLS COUNTED 100
[2017-03-28 17:19] LABS: BASOPHILS % (MANUAL) 0 % (0-2); PLATELET ESTIMATE DECREASED; PLATELET MORPHOLOGY NORMAL
[2017-03-28 18:30] VITALS: BP 110/62
[2017-03-28 20:00] VITALS: BP 112/66
[2017-03-28 20:21] VITALS: BP 108/63
[2017-03-28 20:35] VITALS: BP 112/66
[2017-03-28] MEDS: Heparin 5000 units/ml inj SUBQ SCH ×2 (21:00→21:05)
[2017-03-28] MEDS: Depakote 500mg tab ORAL SCH (21:04)
[2017-03-28] MEDS: D5 1/2NS 1,000 ML IV SCH (21:04)
[2017-03-29] VITALS (12 sets, daily range): BP systolic 92–120; BP diastolic 52–68
[2017-03-29] MEDS: Morphine Sulfate 2mg/ml Inj IVP PRN ×2 (06:44→11:05)
[2017-03-29] MEDS ORDERED: LR 1000ml ONE (07:50)
[2017-03-29] MEDS ORDERED: Propofol 200mg/20ml IV ONE (07:50)
[2017-03-29] MEDS ORDERED: fentaNYL 100 mcg/2 mL IV ONE (07:50)
[2017-03-29] MEDS ORDERED: NS Irrig 1000ml ONE (07:50)
[2017-03-29] MEDS ORDERED: Sterile Water Irrig 1000ml IRRIG ONE (07:50)
[2017-03-29] MEDS ORDERED: Midazolam 2mg/2ml Inj ONE (07:50)
--- NOTE | 2017-03-29 08:51 | Consultation ---
History of Present Illness General Date patient seen: Mar 29, 2017 Chief Complaint: Multiple Trauma/Fall Present Illness Allergies: Coded Allergies: No Known Allergies (Unverified , 08/20/15) Medication History Scheduled Aspirin* (Aspir 81*), 81 MG ORAL DAILY, (Reported) Azithromycin* (Zithromax*), 250 MG ORAL DAILY, (Reported) Bicalutamide* (Bicalutamide*), 50 MG ORAL DAILY, (Reported) Carvedilol (Coreg), 3.125 MG ORAL EVERY 12 HOURS Divalproex Sodium* (Depakote*), 500 MG ORAL Q12HR Docusate Sodium* (Docusate Sodium*), 100 MG ORAL TWICE A DAY, (Reported) Dorzolamide HCl/Timolol Maleat (Dorzolamide-Timolol Eye Drops), 1 DROP BOTH EYES AM, (Reported) Famotidine (Famotidine), 20 MG ORAL TWICE A DAY, (Reported) Guaifenesin (Robafen), 100 MG PO EVERY 6 HOURS, (Reported) Lisinopril* (Lisinopril*), 2.5 MG ORAL BID, (Reported) Risperidone* (Risperdal*), 4 MG ORAL DAILY, (Reported) Spironolactone (Aldactone), 25 MG ORAL DAILY Tamsulosin HCl (Flomax), 0.4 MG ORAL DAILY Temazepam (Temazepam*), 30 MG ORAL BEDTIME, (Reported) Patient History Healthcare decision maker Resuscitation status Full Code Advanced Directive on File No Physical Exam Last 24 Hour Vital Signs Date Time Temp Pulse Resp B/P (MAP) Pulse Ox O2 Delivery O2 Flow Rate FiO2 03/29/17 08:00 98.2 62 18 106/56 95 Room Air 03/29/17 07:21 97.6 03/29/17 04:00 97.6 65 17 108/60 94 Room Air 03/29/17 00:00 97.2 65 18 110/57 96 Room Air 03/28/17 21:04 74 108/63 03/28/17 20:35 98.2 71 19 112/66 94 Room Air 03/28/17 20:31 97.0 74 18 108/63 97 Room Air 03/28/17 20:21 97.0 74 18 108/63 97 Room Air 03/28/17 18:30 82 15 110/62 96 Room Air 03/28/17 17:09 97.0 03/28/17 15:23 97.0 82 20 108/63 98 Room Air Laboratory Tests Test 03/28/17 16:05 White Blood Count 7.8 K/UL (4.8-10.8) Red Blood Count 4.22 M/UL (4.70-6.10) L Hemoglobin 12.4 G/DL (14.2-18.0) L Hematocrit 39.3 % (42.0-52.0) L Mean Corpuscular Volume 93 FL (80-99) Mean Corpuscular Hemoglobin 29.3 PG (27.0-31.0) Mean Corpuscular Hemoglobin Concent 31.5 G/DL (32.0-36.0) L Red Cell Distribution Width 13.9 % (11.6-14.8) Platelet Count 96 K/UL (150-450) L Mean Platelet Volume 5.9 FL (6.5-10.1) L Neutrophils (%) (Auto) % (45.0-75.0) Lymphocytes (%) (Auto) % (20.0-45.0) Monocytes (%) (Auto) % (1.0-10.0) Eosinophils (%) (Auto) % (0.0-3.0) Basophils (%) (Auto) % (0.0-2.0) Differential Total Cells Counted 100 Neutrophils % (Manual) 54 % (45-75) Lymphocytes % (Manual) 25 % (20-45) Monocytes % (Manual) 14 % (1-10) H Eosinophils % (Manual) 1 % (0-3) Basophils % (Manual) 0 % (0-2) Band Neutrophils 6 % (0-8) Platelet Estimate Decreased L Platelet Morphology Normal Red Blood Cell Morphology Normal Prothrombin Time 12.4 SEC (9.30-11.50) H Prothromb Time International Ratio 1.2 (0.9-1.1) H Activated Partial Thromboplast Time 29 SEC (23-33) Sodium Level 138 mEQ/L (135-145) Potassium Level 4.7 mEQ/L (3.4-4.9) Chloride Level 101 mEQ/L (98-107) Carbon Dioxide Level 25 mEQ/L (20-30) Anion Gap 12 (5-15) Blood Urea Nitrogen 17 mg/dL (7-23) Creatinine 1.0 mg/dL (0.7-1.2) Estimat Glomerular Filtration Rate mL/min (>60) Glucose Level 122 mg/dL (74-106) H Calcium Level 9.6 mg/dL (8.6-10.2) Total Bilirubin 0.3 mg/dL (0.0-1.2) Aspartate Amino Transf (AST/SGOT) 21 U/L (5-40) Alanine Aminotransferase (ALT/SGPT) 6 U/L (3-41) Alkaline Phosphatase 44 U/L (40-129) Total Creatine Kinase 284 U/L (38-174) H Creatine Kinase MB < 1.5 ng/mL (< 6.7) Creatine Kinase MB Relative Index Total Protein 6.6 g/dL (6.6-8.7) Albumin 3.4 g/dL (3.5-5.2) L Globulin 3.2 g/dL Albumin/Globulin Ratio 1.0 (1.0-2.7) Height (Feet): 6 Height (Inches): 0.00 Weight (Pounds): 172 Medications Current Medications Medications (Trade) Dose Ordered Sig/Maureen Route PRN Reason Start Time Stop Time Status Last Admin Dose Admin Acetaminophen (Tylenol) 650 mg Q4H PRN ORAL fever 03/28/17 15:30 04/27/17 15:29 Al Hydroxide/Mg Hydroxide (Mylanta II) 30 ml Q6H PRN ORAL dyspepsia 03/28/17 15:30 04/27/17 15:29 Bicalutamide (Casodex) 50 mg DAILY ORAL 03/29/17 09:00 04/03/17 08:59 Carvedilol (Coreg) 3.125 mg EVERY 12 HOURS ORAL 03/28/17 21:00 04/27/17 20:59 03/28/17 21:04 Dextrose (Dextrose 50%) STAT PRN IV Hypoglycemia 03/28/17 15:30 04/27/17 15:29 Dextrose/Sodium Chloride 1,000 ml @ 50 mls/hr Q20H IV 03/28/17 18:00 04/27/17 17:59 03/28/17 21:04 Divalproex Sodium (Depakote) 500 mg Q12HR ORAL 03/28/17 21:00 04/27/17 20:59 10/2/17 21:04 Heparin Sodium (Porcine) (Heparin 5000 units/ml) 5,000 units EVERY 12 HOURS SUBQ 03/28/17 21:00 04/27/17 20:59 Lorazepam (Ativan 2mg/ml 1ml) 0.5 mg Q4H PRN IV For Anxiety 03/28/17 15:30 04/04/17 15:29 Morphine Sulfate (Morphine Sulfate) 2 mg Q4H PRN IVP For Pain 4-6 03/28/17 15:30 04/04/17 15:29 03/29/17 06:44 Morphine Sulfate (Morphine Sulfate) 4 mg Q4H PRN IVP For Pain 7-10 03/28/17 15:30 04/04/17 15:29 Ondansetron HCl (Zofran) 4 mg Q6H PRN IVP Nausea & Vomiting 03/28/17 15:30 04/27/17 15:29 Polyethylene Glycol (Miralax) 17 gm HSPRN PRN ORAL Constipation 03/28/17 15:30 04/27/17 15:29 Risperidone (RisperDAL) 4 mg DAILY ORAL 03/29/17 09:00 04/28/17 08:59 Tamsulosin HCl (Flomax) 0.4 mg DAILY ORAL 03/29/17 09:00 04/28/17 08:59 Zolpidem Tartrate (Ambien) 5 mg HSPRN PRN ORAL Insomnia 03/28/17 15:30 04/04/17 15:29 Assessment/Plan Assessment/Plan (1) Left hip pain (2) Left hip fracture seen lani. HANANE VALENZUELA Mar 29, 2017 08:51
[2017-03-29] MEDS: Bicalutamide 50mg tab ORAL SCH (08:53)
[2017-03-29] MEDS: Heparin 5000 units/ml inj SUBQ SCH (08:54)
[2017-03-29] MEDS: Tamsulosin 0.4mg cap ORAL SCH (08:54)
[2017-03-29] MEDS: Depakote 500mg tab ORAL SCH ×2 (09:06→21:10)
[2017-03-29 10:47] LABS: MEAN CORPUSCULAR HEMOGLOBIN 30.6 PG (27.0-31.0); MEAN CORPUSCULAR HGB CONC 32.9 G/DL (32.0-36.0); MEAN CORPUSCULAR VOLUME 93 FL (80-99); MEAN PLATELET VOLUME 7.6 FL (6.5-10.1); PLATELET COUNT 92 K/UL (150-450); RED CELL DISTRIBUTION WIDTH 13.9 % (11.6-14.8); WHITE BLOOD COUNT 5.5 K/UL (4.8-10.8)
[2017-03-29 11:02] LABS: ALANINE AMINOTRANSFERASE 5 U/L (3-41); ANION GAP 7 (5-15); ASPARTATE AMINO TRANSFERASE 15 U/L (5-40); CALCIUM 9.3 mg/dL (8.6-10.2); CARBON DIOXIDE 29 mEQ/L (20-30); CHLORIDE 101 mEQ/L (98-107); CREATININE 0.8 mg/dL (0.7-1.2); HEMOLYSIS 13; POTASSIUM 4.5 mEQ/L (3.4-4.9); SODIUM 137 mEQ/L (135-145)
[2017-03-29 11:24] LABS: BAND NEUTROPHILS % (MANUAL) 0 % (0-8); BASOPHILS % (MANUAL) 0 % (0-2); EOSINOPHILS % (MANUAL) 1 % (0-3); LYMPHOCYTES % (MANUAL) 27 % (20-45); NEUTROPHILS % (MANUAL) 62 % (45-75); PLATELET ESTIMATE DECREASED; PLATELET MORPHOLOGY NORMAL; TOTAL CELLS COUNTED 100
--- NOTE | 2017-03-29 12:06 | Cardiology Progress Note ---
Assessment/Plan Assessment/Plan reportedly dilated cardiomyopathy (not new ) ef 25-30% sig MR hs icd hs hip fracture hs of tia and seizures thrombocytopenia chronic LBBB no acute chf at this time low intermediate risk of perioperative chf watch periop fluid administration icd last interrogated 10/2016 watch plt count post op [id number] Objective Last 24 Hour Vital Signs Date Time Temp Pulse Resp B/P (MAP) Pulse Ox O2 Delivery O2 Flow Rate FiO2 03/29/17 11:44 98.2 03/29/17 08:55 62 106/56 03/29/17 08:00 98.2 62 18 106/56 95 Room Air 03/29/17 04:00 97.6 65 17 108/60 94 Room Air 03/29/17 00:00 97.2 65 18 110/57 96 Room Air 03/28/17 21:04 74 108/63 03/28/17 20:35 98.2 71 19 112/66 94 Room Air 03/28/17 20:31 97.0 74 18 108/63 97 Room Air 03/28/17 20:21 97.0 74 18 108/63 97 Room Air 03/28/17 18:30 82 15 110/62 96 Room Air 03/28/17 17:09 97.0 03/28/17 15:23 97.0 82 20 108/63 98 Room Air Intake and Output 03/29/17 03/30/17 19:00 07:00 Intake Total 50 ml Balance 50 ml Intake IV Total 50 ml Laboratory Tests Test 03/28/17 16:05 03/29/17 10:05 White Blood Count 7.8 K/UL (4.8-10.8) 5.5 K/UL (4.8-10.8) Red Blood Count 4.22 M/UL (4.70-6.10) L 3.70 M/UL (4.70-6.10) L Hemoglobin 12.4 G/DL (14.2-18.0) L 11.3 G/DL (14.2-18.0) L Hematocrit 39.3 % (42.0-52.0) L 34.4 % (42.0-52.0) L Mean Corpuscular Volume 93 FL (80-99) 93 FL (80-99) Mean Corpuscular Hemoglobin 29.3 PG (27.0-31.0) 30.6 PG (27.0-31.0) Mean Corpuscular Hemoglobin Concent 31.5 G/DL (32.0-36.0) L 32.9 G/DL (32.0-36.0) Red Cell Distribution Width 13.9 % (11.6-14.8) 13.9 % (11.6-14.8) Platelet Count 96 K/UL (150-450) L 92 K/UL (150-450) L Mean Platelet Volume 5.9 FL (6.5-10.1) L 7.6 FL (6.5-10.1) Neutrophils (%) (Auto) % (45.0-75.0) % (45.0-75.0) Lymphocytes (%) (Auto) % (20.0-45.0) % (20.0-45.0) Monocytes (%) (Auto) % (1.0-10.0) % (1.0-10.0) Eosinophils (%) (Auto) % (0.0-3.0) % (0.0-3.0) Basophils (%) (Auto) % (0.0-2.0) % (0.0-2.0) Differential Total Cells Counted 100 100 Neutrophils % (Manual) 54 % (45-75) 62 % (45-75) Lymphocytes % (Manual) 25 % (20-45) 27 % (20-45) Monocytes % (Manual) 14 % (1-10) H 10 % (1-10) Eosinophils % (Manual) 1 % (0-3) 1 % (0-3) Basophils % (Manual) 0 % (0-2) 0 % (0-2) Band Neutrophils 6 % (0-8) 0 % (0-8) Platelet Estimate Decreased L Decreased L Platelet Morphology Normal Normal Red Blood Cell Morphology Normal Normal Prothrombin Time 12.4 SEC (9.30-11.50) H Prothromb Time International Ratio 1.2 (0.9-1.1) H Activated Partial Thromboplast Time 29 SEC (23-33) Sodium Level 138 mEQ/L (135-145) 137 mEQ/L (135-145) Potassium Level 4.7 mEQ/L (3.4-4.9) 4.5 mEQ/L (3.4-4.9) Chloride Level 101 mEQ/L (98-107) 101 mEQ/L (98-107) Carbon Dioxide Level 25 mEQ/L (20-30) 29 mEQ/L (20-30) Anion Gap 12 (5-15) 7 (5-15) Blood Urea Nitrogen 17 mg/dL (7-23) 15 mg/dL (7-23) Creatinine 1.0 mg/dL (0.7-1.2) 0.8 mg/dL (0.7-1.2) Estimat Glomerular Filtration Rate mL/min (>60) mL/min (>60) Glucose Level 122 mg/dL (74-106) H 94 mg/dL (74-106) Calcium Level 9.6 mg/dL (8.6-10.2) 9.3 mg/dL (8.6-10.2) Total Bilirubin 0.3 mg/dL (0.0-1.2) 0.5 mg/dL (0.0-1.2) Aspartate Amino Transf (AST/SGOT) 21 U/L (5-40) 15 U/L (5-40) Alanine Aminotransferase (ALT/SGPT) 6 U/L (3-41) 5 U/L (3-41) Alkaline Phosphatase 44 U/L (40-129) 36 U/L (40-129) L Total Creatine Kinase 284 U/L (38-174) H Creatine Kinase MB < 1.5 ng/mL (< 6.7) Creatine Kinase MB Relative Index Total Protein 6.6 g/dL (6.6-8.7) 6.0 g/dL (6.6-8.7) L Albumin 3.4 g/dL (3.5-5.2) L 3.1 g/dL (3.5-5.2) L Globulin 3.2 g/dL 2.9 g/dL Albumin/Globulin Ratio 1.0 (1.0-2.7) 1.0 (1.0-2.7) Thyroid Stimulating Hormone (TSH) 4.420 uIU/mL (0.300-4.500) ARLEY AVILEZ Mar 29, 2017 12:06
--- NOTE | 2017-03-29 12:38 | History and Physical ---
History of Present Illness General Date patient seen: Mar 28, 2017 Reason for Hospitalization: Multiple Trauma/Fall Present Illness HPI 76 year old male with hx of parkinson, cardiomyopathy, ICD, endstage heart disease brought in evaluation of hip pain, Pt was diagnosed to have hip fracture and admitted for surgical intervention. Allergies: Coded Allergies: No Known Allergies (Unverified , 08/20/15) Medication History Scheduled Aspirin* (Aspir 81*), 81 MG ORAL DAILY, (Reported) Azithromycin* (Zithromax*), 250 MG ORAL DAILY, (Reported) Bicalutamide* (Bicalutamide*), 50 MG ORAL DAILY, (Reported) Carvedilol (Coreg), 3.125 MG ORAL EVERY 12 HOURS Divalproex Sodium* (Depakote*), 500 MG ORAL Q12HR Docusate Sodium* (Docusate Sodium*), 100 MG ORAL TWICE A DAY, (Reported) Dorzolamide HCl/Timolol Maleat (Dorzolamide-Timolol Eye Drops), 1 DROP BOTH EYES AM, (Reported) Famotidine (Famotidine), 20 MG ORAL TWICE A DAY, (Reported) Guaifenesin (Robafen), 100 MG PO EVERY 6 HOURS, (Reported) Lisinopril* (Lisinopril*), 2.5 MG ORAL BID, (Reported) Risperidone* (Risperdal*), 4 MG ORAL DAILY, (Reported) Spironolactone (Aldactone), 25 MG ORAL DAILY Tamsulosin HCl (Flomax), 0.4 MG ORAL DAILY Temazepam (Temazepam*), 30 MG ORAL BEDTIME, (Reported) Patient History Healthcare decision maker Resuscitation status Full Code Advanced Directive on File No Past Medical/Surgical History Past Medical/Surgical History: (1) End-stage systolic heart failure (2) CVA (cerebral vascular accident) (3) Pacemaker (4) Elevated PSA Review of Systems All Other Systems: negative except mentioned in HPI Physical Exam General Appearance: cachetic Lines, tubes and drains: peripheral HEENT: normocephalic, atraumatic Neck: non-tender, normal alignment Respiratory/Chest: chest wall non-tender, lungs clear Breasts: no masses Cardiovascular/Chest: normal peripheral pulses Abdomen: normal bowel sounds Genitourinary/Rectal: normal genital exam Extremities: normal range of motion, non-tender, normal inspection Skin Exam: normal pigmentation 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 Last 24 Hour Vital Signs Date Time Temp Pulse Resp B/P (MAP) Pulse Ox O2 Delivery O2 Flow Rate FiO2 03/29/17 12:20 97.5 65 20 120/68 94 Room Air 03/29/17 11:44 98.2 03/29/17 08:55 62 106/56 03/29/17 08:00 98.2 62 18 106/56 95 Room Air 03/29/17 04:00 97.6 65 17 108/60 94 Room Air 03/29/17 00:00 97.2 65 18 110/57 96 Room Air 03/28/17 21:04 74 108/63 03/28/17 20:35 98.2 71 19 112/66 94 Room Air 03/28/17 20:31 97.0 74 18 108/63 97 Room Air 03/28/17 20:21 97.0 74 18 108/63 97 Room Air 03/28/17 18:30 82 15 110/62 96 Room Air 03/28/17 17:09 97.0 03/28/17 15:23 97.0 82 20 108/63 98 Room Air Intake and Output 03/29/17 03/30/17 19:00 07:00 Intake Total 50 ml Balance 50 ml Intake IV Total 50 ml Laboratory Tests Test 03/28/17 16:05 03/29/17 10:05 White Blood Count 7.8 K/UL (4.8-10.8) 5.5 K/UL (4.8-10.8) Red Blood Count 4.22 M/UL (4.70-6.10) L 3.70 M/UL (4.70-6.10) L Hemoglobin 12.4 G/DL (14.2-18.0) L 11.3 G/DL (14.2-18.0) L Hematocrit 39.3 % (42.0-52.0) L 34.4 % (42.0-52.0) L Mean Corpuscular Volume 93 FL (80-99) 93 FL (80-99) Mean Corpuscular Hemoglobin 29.3 PG (27.0-31.0) 30.6 PG (27.0-31.0) Mean Corpuscular Hemoglobin Concent 31.5 G/DL (32.0-36.0) L 32.9 G/DL (32.0-36.0) Red Cell Distribution Width 13.9 % (11.6-14.8) 13.9 % (11.6-14.8) Platelet Count 96 K/UL (150-450) L 92 K/UL (150-450) L Mean Platelet Volume 5.9 FL (6.5-10.1) L 7.6 FL (6.5-10.1) Neutrophils (%) (Auto) % (45.0-75.0) % (45.0-75.0) Lymphocytes (%) (Auto) % (20.0-45.0) % (20.0-45.0) Monocytes (%) (Auto) % (1.0-10.0) % (1.0-10.0) Eosinophils (%) (Auto) % (0.0-3.0) % (0.0-3.0) Basophils (%) (Auto) % (0.0-2.0) % (0.0-2.0) Differential Total Cells Counted 100 100 Neutrophils % (Manual) 54 % (45-75) 62 % (45-75) Lymphocytes % (Manual) 25 % (20-45) 27 % (20-45) Monocytes % (Manual) 14 % (1-10) H 10 % (1-10) Eosinophils % (Manual) 1 % (0-3) 1 % (0-3) Basophils % (Manual) 0 % (0-2) 0 % (0-2) Band Neutrophils 6 % (0-8) 0 % (0-8) Platelet Estimate Decreased L Decreased L Platelet Morphology Normal Normal Red Blood Cell Morphology Normal Normal Prothrombin Time 12.4 SEC (9.30-11.50) H Prothromb Time International Ratio 1.2 (0.9-1.1) H Activated Partial Thromboplast Time 29 SEC (23-33) Sodium Level 138 mEQ/L (135-145) 137 mEQ/L (135-145) Potassium Level 4.7 mEQ/L (3.4-4.9) 4.5 mEQ/L (3.4-4.9) Chloride Level 101 mEQ/L (98-107) 101 mEQ/L (98-107) Carbon Dioxide Level 25 mEQ/L (20-30) 29 mEQ/L (20-30) Anion Gap 12 (5-15) 7 (5-15) Blood Urea Nitrogen 17 mg/dL (7-23) 15 mg/dL (7-23) Creatinine 1.0 mg/dL (0.7-1.2) 0.8 mg/dL (0.7-1.2) Estimat Glomerular Filtration Rate mL/min (>60) mL/min (>60) Glucose Level 122 mg/dL (74-106) H 94 mg/dL (74-106) Calcium Level 9.6 mg/dL (8.6-10.2) 9.3 mg/dL (8.6-10.2) Total Bilirubin 0.3 mg/dL (0.0-1.2) 0.5 mg/dL (0.0-1.2) Aspartate Amino Transf (AST/SGOT) 21 U/L (5-40) 15 U/L (5-40) Alanine Aminotransferase (ALT/SGPT) 6 U/L (3-41) 5 U/L (3-41) Alkaline Phosphatase 44 U/L (40-129) 36 U/L (40-129) L Total Creatine Kinase 284 U/L (38-174) H Creatine Kinase MB < 1.5 ng/mL (< 6.7) Creatine Kinase MB Relative Index Total Protein 6.6 g/dL (6.6-8.7) 6.0 g/dL (6.6-8.7) L Albumin 3.4 g/dL (3.5-5.2) L 3.1 g/dL (3.5-5.2) L Globulin 3.2 g/dL 2.9 g/dL Albumin/Globulin Ratio 1.0 (1.0-2.7) 1.0 (1.0-2.7) Thyroid Stimulating Hormone (TSH) 4.420 uIU/mL (0.300-4.500) Height (Feet): 5 Height (Inches): 9.00 Weight (Pounds): 175 Medications Current Medications Medications (Trade) Dose Ordered Sig/Maureen Route PRN Reason Start Time Stop Time Status Last Admin Dose Admin Acetaminophen (Tylenol) 650 mg Q4H PRN ORAL fever 03/28/17 15:30 04/27/17 15:29 Al Hydroxide/Mg Hydroxide (Mylanta II) 30 ml Q6H PRN ORAL dyspepsia 03/28/17 15:30 04/27/17 15:29 Bicalutamide (Casodex) 50 mg DAILY ORAL 03/29/17 09:00 04/03/17 08:59 Carvedilol (Coreg) 3.125 mg EVERY 12 HOURS ORAL 03/29/17 21:00 04/28/17 20:59 Dextrose (Dextrose 50%) STAT PRN IV Hypoglycemia 03/28/17 15:30 04/27/17 15:29 Dextrose/Sodium Chloride 1,000 ml @ 50 mls/hr Q20H IV 03/28/17 18:00 04/27/17 17:59 03/28/17 21:04 Divalproex Sodium (Depakote) 500 mg Q12HR ORAL 03/28/17 21:00 04/27/17 20:59 03/29/17 09:06 Heparin Sodium (Porcine) (Heparin 5000 units/ml) 5,000 units EVERY 12 HOURS SUBQ 03/28/17 21:00 04/27/17 20:59 Lorazepam (Ativan 2mg/ml 1ml) 0.5 mg Q4H PRN IV For Anxiety 03/28/17 15:30 04/04/17 15:29 Morphine Sulfate (Morphine Sulfate) 2 mg Q4H PRN IVP For Pain 4-6 03/28/17 15:30 04/04/17 15:29 03/29/17 11:05 Morphine Sulfate (Morphine Sulfate) 4 mg Q4H PRN IVP For Pain 7-10 03/28/17 15:30 04/04/17 15:29 Ondansetron HCl (Zofran) 4 mg Q6H PRN IVP Nausea & Vomiting 03/28/17 15:30 04/27/17 15:29 Polyethylene Glycol (Miralax) 17 gm HSPRN PRN ORAL Constipation 03/28/17 15:30 04/27/17 15:29 Risperidone (RisperDAL) 4 mg DAILY ORAL 03/29/17 09:00 04/28/17 08:59 03/29/17 09:06 Tamsulosin HCl (Flomax) 0.4 mg DAILY ORAL 03/29/17 09:00 04/28/17 08:59 Zolpidem Tartrate (Ambien) 5 mg HSPRN PRN ORAL Insomnia 03/28/17 15:30 04/04/17 15:29 Assessment/Plan Problem List: (1) Fracture of femoral neck, left, closed ICD Codes: S72.002A - Fracture of unspecified part of neck of left femur, initial encounter for closed fracture SNOMED: 679380395 Qualifiers: Qualified Codes: S72.002A - Fracture of unspecified part of neck of left femur, initial encounter for closed fracture (2) Hypertension ICD Codes: I10 - Essential (primary) hypertension SNOMED: 87632202 (3) CVA (cerebral vascular accident) ICD Codes: I63.9 - Cerebral infarction, unspecified SNOMED: 485948031 (4) End-stage systolic heart failure ICD Codes: I50.20 - Unspecified systolic (congestive) heart failure SNOMED: 865184705 Assessment/Plan symptomatic treatment ortho evaluation cardiology to see. titrate cardiac meds RUIZ HOPPER Mar 29, 2017 12:38
--- NOTE | 2017-03-29 12:40 | Pulmonology Progress Note ---
Assessment/Plan Problems: (1) Fracture of femoral neck, left, closed (2) Hypertension (3) CVA (cerebral vascular accident) (4) End-stage systolic heart failure Assessment/Plan d/w Dr Cordero, no CHF at this time pt is medically optimized for surgery hematology to see for low PLT titrate cardiac meds f/u PSA, CEA Subjective ROS Limited/Unobtainable: No Interval Events: no new complains Allergies: Coded Allergies: No Known Allergies (Unverified , 08/20/15) Objective Last 24 Hour Vital Signs Date Time Temp Pulse Resp B/P (MAP) Pulse Ox O2 Delivery O2 Flow Rate FiO2 03/29/17 12:20 97.5 65 20 120/68 94 Room Air 03/29/17 11:44 98.2 03/29/17 08:55 62 106/56 03/29/17 08:00 98.2 62 18 106/56 95 Room Air 03/29/17 04:00 97.6 65 17 108/60 94 Room Air 03/29/17 00:00 97.2 65 18 110/57 96 Room Air 03/28/17 21:04 74 108/63 03/28/17 20:35 98.2 71 19 112/66 94 Room Air 03/28/17 20:31 97.0 74 18 108/63 97 Room Air 03/28/17 20:21 97.0 74 18 108/63 97 Room Air 03/28/17 18:30 82 15 110/62 96 Room Air 03/28/17 17:09 97.0 03/28/17 15:23 97.0 82 20 108/63 98 Room Air Intake and Output 03/29/17 03/30/17 19:00 07:00 Intake Total 50 ml Balance 50 ml Intake IV Total 50 ml General Appearance: WD/WN HEENT: normocephalic, anicteric Respiratory/Chest: chest wall non-tender, lungs clear Cardiovascular: normal peripheral pulses, normal rate Abdomen: normal bowel sounds, no organomegaly, no scars Extremities: no cyanosis, no clubbing Skin: no lesions Laboratory Tests 03/28/17 16:05: White Blood Count 7.8, Red Blood Count 4.22L, Hemoglobin 12.4L, Hematocrit 39.3L , Mean Corpuscular Volume 93, Mean Corpuscular Hemoglobin 29.3, Mean Corpuscular Hemoglobin Concent 31.5L, Red Cell Distribution Width 13.9, Platelet Count 96L, Mean Platelet Volume 5.9L, Neutrophils (%) (Auto) , Lymphocytes (%) (Auto) , Monocytes (%) (Auto) , Eosinophils (%) (Auto) , Basophils (%) (Auto) , Differential Total Cells Counted 100, Neutrophils % ( Manual) 54, Lymphocytes % (Manual) 25, Monocytes % (Manual) 14H, Eosinophils % ( Manual) 1, Basophils % (Manual) 0, Band Neutrophils 6, Platelet Estimate DecreasedL, Platelet Morphology Normal, Red Blood Cell Morphology Normal, Prothrombin Time 12.4H, Prothromb Time International Ratio 1.2H, Activated Partial Thromboplast Time 29, Sodium Level 138, Potassium Level 4.7, Chloride Level 101, Carbon Dioxide Level 25, Anion Gap 12, Blood Urea Nitrogen 17, Creatinine 1.0, Estimat Glomerular Filtration Rate , Glucose Level 122H, Calcium Level 9.6, Total Bilirubin 0.3, Aspartate Amino Transf (AST/SGOT) 21, Alanine Aminotransferase (ALT/SGPT) 6, Alkaline Phosphatase 44, Total Creatine Kinase 284H, Creatine Kinase MB < 1.5, Creatine Kinase MB Relative Index , Total Protein 6.6, Albumin 3.4L, Globulin 3.2, Albumin/Globulin Ratio 1.0 03/29/17 10:05: White Blood Count 5.5, Red Blood Count 3.70L, Hemoglobin 11.3L, Hematocrit 34.4L , Mean Corpuscular Volume 93, Mean Corpuscular Hemoglobin 30.6, Mean Corpuscular Hemoglobin Concent 32.9, Red Cell Distribution Width 13.9, Platelet Count 92L, Mean Platelet Volume 7.6, Neutrophils (%) (Auto) , Lymphocytes (%) ( Auto) , Monocytes (%) (Auto) , Eosinophils (%) (Auto) , Basophils (%) (Auto) , Differential Total Cells Counted 100, Neutrophils % (Manual) 62, Lymphocytes % ( Manual) 27, Monocytes % (Manual) 10, Eosinophils % (Manual) 1, Basophils % ( Manual) 0, Band Neutrophils 0, Platelet Estimate DecreasedL, Platelet Morphology Normal, Red Blood Cell Morphology Normal, Sodium Level 137, Potassium Level 4.5, Chloride Level 101, Carbon Dioxide Level 29, Anion Gap 7, Blood Urea Nitrogen 15, Creatinine 0.8, Estimat Glomerular Filtration Rate , Glucose Level 94, Calcium Level 9.3, Total Bilirubin 0.5, Aspartate Amino Transf (AST/SGOT) 15, Alanine Aminotransferase (ALT/SGPT) 5, Alkaline Phosphatase 36L, Total Protein 6.0L, Albumin 3.1L, Globulin 2.9, Albumin/ Globulin Ratio 1.0, Thyroid Stimulating Hormone (TSH) 4.420 Current Medications Medications (Trade) Dose Ordered Sig/Maureen Route PRN Reason Start Time Stop Time Status Last Admin Dose Admin Acetaminophen (Tylenol) 650 mg Q4H PRN ORAL fever 03/28/17 15:30 04/27/17 15:29 Al Hydroxide/Mg Hydroxide (Mylanta II) 30 ml Q6H PRN ORAL dyspepsia 03/28/17 15:30 04/27/17 15:29 Bicalutamide (Casodex) 50 mg DAILY ORAL 03/29/17 09:00 04/03/17 08:59 Carvedilol (Coreg) 3.125 mg EVERY 12 HOURS ORAL 03/29/17 21:00 04/28/17 20:59 Dextrose (Dextrose 50%) STAT PRN IV Hypoglycemia 03/28/17 15:30 04/27/17 15:29 Dextrose/Sodium Chloride 1,000 ml @ 50 mls/hr Q20H IV 03/28/17 18:00 04/27/17 17:59 03/28/17 21:04 Divalproex Sodium (Depakote) 500 mg Q12HR ORAL 03/28/17 21:00 04/27/17 20:59 03/29/17 09:06 Heparin Sodium (Porcine) (Heparin 5000 units/ml) 5,000 units EVERY 12 HOURS SUBQ 03/28/17 21:00 04/27/17 20:59 Lorazepam (Ativan 2mg/ml 1ml) 0.5 mg Q4H PRN IV For Anxiety 03/28/17 15:30 04/04/17 15:29 Morphine Sulfate (Morphine Sulfate) 2 mg Q4H PRN IVP For Pain 4-6 03/28/17 15:30 04/04/17 15:29 03/29/17 11:05 Morphine Sulfate (Morphine Sulfate) 4 mg Q4H PRN IVP For Pain 7-10 03/28/17 15:30 04/04/17 15:29 Ondansetron HCl (Zofran) 4 mg Q6H PRN IVP Nausea & Vomiting 03/28/17 15:30 04/27/17 15:29 Polyethylene Glycol (Miralax) 17 gm HSPRN PRN ORAL Constipation 03/28/17 15:30 04/27/17 15:29 Risperidone (RisperDAL) 4 mg DAILY ORAL 03/29/17 09:00 04/28/17 08:59 03/29/17 09:06 Tamsulosin HCl (Flomax) 0.4 mg DAILY ORAL 03/29/17 09:00 04/28/17 08:59 Zolpidem Tartrate (Ambien) 5 mg HSPRN PRN ORAL Insomnia 03/28/17 15:30 04/04/17 15:29 RUIZ HOPPER Mar 29, 2017 12:40
[2017-03-29] MEDS: D5 1/2NS 1,000 ML IV SCH (14:00)
--- NOTE | 2017-03-29 15:20 | Pre-Procedure Note/Attestation ---
Pre-Procedure Note/Attestation Complete Prior to Procedure Planned Procedure: left Procedure Narrative: Left hip hemiarthroplasty Indications for Procedure Pre-Operative Diagnosis: Left hip femoral neck fracture Attestation I attest that I discussed the nature of the procedure; its benefits; risks and complications; and alternatives (and the risks and benefits of such alternatives ), prior to the procedure, with the patient (or the patient's legal sales utility representative). I attest that, if there was a reasonable possibility of needing a blood transfusion, the patient (or the patient's legal sales utility representative) was given the [facility] standardized written summary, pursuant to the Abdelrahman Nu Blood Safety Act ([place] Health and Safety Code # 1645, as amended). I attest that I re-evaluated the patient just prior to the surgery and that there has been no change in the patient's H&P, except as documented below: ROSMERY FRYE Mar 29, 2017 15:20
[2017-03-29] MEDS ORDERED: Norco 5mg/325mg tab ORAL PRN (15:30)
[2017-03-29] MEDS ORDERED: Morphine Sulfate 4mg/ml Inj IVP PRN (15:30)
[2017-03-29] MEDS ORDERED: Norco 7.5mg/325mg tab ORAL PRN (15:30)
[2017-03-29] MEDS ORDERED: Morphine Sulfate PF 0 ML ONE (16:04)
[2017-03-29] MEDS ORDERED: Kenalog-40 1ml Vial ONE (16:05)
[2017-03-29] MEDS ORDERED: Duramorph PF 5mg/10ml amp ONE (16:05)
[2017-03-29] MEDS ORDERED: Bupivacaine 0.5% Inj 30 ml vial INJ ONE (16:05)
[2017-03-29] MEDS ORDERED: Bupivacaine w/Epi 0.5% 30ml Vial INJ ONE (16:06)
[2017-03-29] MEDS ORDERED: NeoSporin Gu Irrig 1ml Amp IRRIG ONE (16:06)
[2017-03-29] MEDS ORDERED: Bacitracin 50000 Units Vial ONE (16:06)
[2017-03-29] MEDS ORDERED: LR 1000ml 1,000 ML IVLG SCH (17:42)
--- NOTE | 2017-03-29 17:42 | Anethesia Preoperative Eval ---
Anesthesia Pre-op PMH/ROS General Date of Evaluation: Mar 29, 2017 Time of Evaluation: 16:22 Anesthesiologist: Issac ASA Score: ASA 3 Mallampati Score Class I : Soft palate, uvula, fauces, pillars visible Class II: Soft palate, uvula, fauces visible Class III: Soft palate, base of uvula visible Class IV: Only hard plate visible Mallampati Classification: Class II Surgeon: Lakhwinder Diagnosis: L femoral neck Fx Surgical Procedure: L hip hemiarthroplasty Anesthesia History: none Family History: no anesthesia problems Allergies: Coded Allergies: No Known Allergies (Unverified , 08/20/15) Medications: see eMAR Past Medical History Cardiovascular: Reports: HTN, arrhythmia, other - cardiomyopathy, Denies: CAD, MD, valve dz Pulmonary: Denies: asthma, COPD, HALINA, other Gastrointestinal/Genitourinary: Reports: GERD, Denies: CRI, ESRD, other Neurologic/Psychiatric: Reports: dementia - mild, CVA, Denies: depression/anxiety, TIA, other Endocrine: Denies: DM, hypothyroidism, steroids, other HEENT: Denies: cataract (L), cataract (R), glaucoma, KAW (L), KAW (R), other Hematology/Immune: Denies: anemia, DVT, bleeding disorder, other Musculoskeletal/Integumentary: Reports: DJD, other - osteopenia, Denies: OA, RA, DDD, edema PMH Narrative: as above PSxH Narrative: See H&P Pacemaker placement Anesthesia Pre-op Phys. Exam Physician Exam Last Vital Signs Date Time Temp Pulse Resp B/P (MAP) Pulse Ox O2 Delivery O2 Flow Rate FiO2 03/29/17 12:20 97.5 65 20 120/68 94 Room Air Constitutional: NAD Neurologic: other - unable to obtaine Cardiovascular: RRR, other - paced rhytm Respiratory: CTA Gastrointestinal: S/NT/ND Airway Exam Mallampati Score: Class II MO: limited Neck: stiff ROM: limited Teeth: missing Dentures: no upper, no lower Anesthesia Pre-op A/P Labs Hematology Test 03/29/17 10:05 White Blood Count 5.5 K/UL (4.8-10.8) Red Blood Count 3.70 M/UL (4.70-6.10) L Hemoglobin 11.3 G/DL (14.2-18.0) L Hematocrit 34.4 % (42.0-52.0) L Mean Corpuscular Volume 93 FL (80-99) Mean Corpuscular Hemoglobin 30.6 PG (27.0-31.0) Mean Corpuscular Hemoglobin Concent 32.9 G/DL (32.0-36.0) Red Cell Distribution Width 13.9 % (11.6-14.8) Platelet Count 92 K/UL (150-450) L Mean Platelet Volume 7.6 FL (6.5-10.1) Neutrophils (%) (Auto) % (45.0-75.0) Lymphocytes (%) (Auto) % (20.0-45.0) Monocytes (%) (Auto) % (1.0-10.0) Eosinophils (%) (Auto) % (0.0-3.0) Basophils (%) (Auto) % (0.0-2.0) Differential Total Cells Counted 100 Neutrophils % (Manual) 62 % (45-75) Lymphocytes % (Manual) 27 % (20-45) Monocytes % (Manual) 10 % (1-10) Eosinophils % (Manual) 1 % (0-3) Basophils % (Manual) 0 % (0-2) Band Neutrophils 0 % (0-8) Platelet Estimate Decreased L Platelet Morphology Normal Red Blood Cell Morphology Normal Chemistry Test 03/29/17 10:05 Sodium Level 137 mEQ/L (135-145) Potassium Level 4.5 mEQ/L (3.4-4.9) Chloride Level 101 mEQ/L (98-107) Carbon Dioxide Level 29 mEQ/L (20-30) Anion Gap 7 (5-15) Blood Urea Nitrogen 15 mg/dL (7-23) Creatinine 0.8 mg/dL (0.7-1.2) Estimat Glomerular Filtration Rate mL/min (>60) Glucose Level 94 mg/dL (74-106) Calcium Level 9.3 mg/dL (8.6-10.2) Total Bilirubin 0.5 mg/dL (0.0-1.2) Aspartate Amino Transf (AST/SGOT) 15 U/L (5-40) Alanine Aminotransferase (ALT/SGPT) 5 U/L (3-41) Alkaline Phosphatase 36 U/L (40-129) L Total Protein 6.0 g/dL (6.6-8.7) L Albumin 3.1 g/dL (3.5-5.2) L Globulin 2.9 g/dL Albumin/Globulin Ratio 1.0 (1.0-2.7) Thyroid Stimulating Hormone (TSH) 4.420 uIU/mL (0.300-4.500) Studies Pre-op Studies: echo - by cardiology 25-30% Risk Assessment & Plan Assessment: ASA 3 Plan: SAB vs GA Status Change Before Surgery: No Pre-Antibiotics Drug: Ancef 1 gr. Given Within 1 Hr of Incision: Yes Time Given: 17:10 KATE MILLIGAN M.D. Mar 29, 2017 17:42
[2017-03-29] MEDS ORDERED: DiphenhydrAMINE 50mg/ml Inj IVP PRN (17:45)
[2017-03-29] MEDS ORDERED: fentaNYL 100 mcg/2 mL IV PRN (17:45)
--- NOTE | 2017-03-29 17:45 | Cardiology Report ---
APPROVED REPORT EXAM: Two-dimensional and M-mode echocardiogram with Doppler and color Doppler. INDICATION Pre-Op M-Mode DIMENSIONS IVSd0.9 (0.7-1.1cm)Left Atrium (MM)3.4 (1.6-4.0cm) LVDd6.1 (3.5-5.6cm)Aortic Root3.8 (2.0-3.7cm) PWd1.0 (0.7-1.1cm)Aortic Cusp Exc.2.0 (1.5-2.0cm) LVDs5.6 (2.5-4.0cm) PWs1.2 cm Technically limited and difficult study due to poor acoustical windows. Mild left ventricular enlargement. Global left ventricular hypokinesis. Apical dyskinesis.Asynchronous septal motion related to pacing best motion is noted in the proximal to mid lateral wall . Study quality precludes accurate assessment of regional wall motion. Left ventricular ejection fraction estimated to be 25-30%. No evidence of left ventricular hypertrophy. No evidence of pericardial or pleural effusion. All other cardiac chamber sizes are within normal limits. Aortic root dilatation. Focal aortic valve sclerosis with adequate cusp excursion. Thickened mitral valve leaflets with normal excursion. Mild mitral annulus and aortic root calcification. Pulmonic valve not well visualized. Normal tricuspid valve structure. IVC is normal in size and collapsible with respiration. Probable pacemaker wire present in the right side chambers. A color flow and spectral Doppler study was performed and revealed: No aortic regurgitation. Mild mitral regurgitation. Mitral diastolic velocities suggest reduced left ventricular relaxation c/w diastolic dysfunction grade 1. No tricuspid regurgitation.
--- NOTE | 2017-03-29 18:02 | Cardiology Report ---
APPROVED REPORT EKG Measurement Heart [id number] Normal sinus rhythm Left bundle branch block Abnormal ECG
[2017-03-29] MEDS ORDERED: Tranexamic Acid 1,000 MG in NS 55 ML IVPB ONE ×4 (18:30)
--- NOTE | 2017-03-29 18:41 | Immediate Post-Op Evaluation ---
Immediate Post-Op Evalulation Immediate Post-Op Evalulation Procedure: L hip hemiarthroplasty Date of Evaluation: Mar 29, 2017 Time of Evaluation: 18:40 IV Fluids: 1200 Blood Products: none Estimated Blood Loss: 150 Urinary Output: 100 Blood Pressure Systolic: 94 Blood Pressure Diastolic: 53 Pulse Rate: 60 Respiratory Rate: 20 O2 Sat by Pulse Oximetry: 99 Temperature (Fahrenheit): 97.8 Pain Score (1-10): 1 Nausea: No Vomiting: No Complications none Patient Status: awake, patent, none Hydration Status: adequate KATE MILLIGAN M.D. Mar 29, 2017 18:41
[2017-03-29] MEDS ORDERED: NS IVPB SCH (19:00)
[2017-03-29] MEDS ORDERED: TRANEXAMIC ACID IVPB SCH (19:00)
[2017-03-29] MEDS: Docusate 100mg cap ORAL SCH (21:09)
[2017-03-29] MEDS: oxyCONTIN 20mg tab ORAL SCH (21:10)
[2017-03-29] MEDS: D5 1/2NS w/KCl 20mEq 1,000 ML IV SCH (21:40)
[2017-03-29] MEDS: ceFAZolin 2gm/50ml Premix 50 ML IV SCH (22:33)
[2017-03-29] MEDS ORDERED: ceFAZolin sod 2 GM in D5W 110 ML IV SCH (23:00)
--- NOTE | 2017-03-29 23:00 | Consultation ---
DATE OF CONSULTATION: 03/29/2017 ORTHOPEDIC CONSULTATION REQUESTING PHYSICIAN: Maria Isabel Tran M.D. DIAGNOSIS: Left hip femoral neck fracture. History Of Present Illness: The patient is a 76-year-old gentleman who lives alone who has coronary artery disease and who fell. He sustained the above fracture. He was unable to bear weight and was brought into the hospital. MEDICATIONS: He takes Coreg and Casodex. ALLERGIES: He has no known drug allergies. REVIEW OF SYSTEMS: Fourteen point review systems is negative. Physical Examination: He is resting comfortably in bed. Left lower extremity is gross neurovascular examination was intact to motor movement. No manipulative maneuver was performed of the hip because of pain. Radiographs: AP pelvis and left hip radiographs reveal a displaced femoral neck fracture. Impression: The patient is a 76-year-old gentleman with a cardiac history and an ejection fraction of approximately 30% who sustained a left hip fracture. I have recommended hip hemiarthroplasty. He was evaluated by Cardiology and optimized for surgery. He understands all associated risks, including dislocation, leg length discrepancy, and all associated surgical risks. We will proceed to the operating room when available. He asked me to speak to his sister Noe with whom I spoke at [phone] and discussed all risks and benefits of the surgery. He will be on anticoagulation therapy for one month postoperatively. Thank you for the opportunity to consult. Danielito Keane M.D. DR: NATALYA JOB#: [id number] CC:
[2017-03-30 00:41] VITALS: BP 121/56
[2017-03-30 04:12] VITALS: BP 112/63
[2017-03-30] MEDS: ceFAZolin 2gm/50ml Premix 50 ML IV SCH (06:00)
--- NOTE | 2017-03-30 06:55 | 48 Hour Post Anesthesia Eval ---
Post Anesthesia Evaluation Procedure: L hip hemiarthroplasty Date of Evaluation: Mar 30, 2017 Time of Evaluation: 06:32 Blood Pressure Systolic: 112 0: 63 Pulse Rate: 74 Respiratory Rate: 18 Temperature (Fahrenheit): 97.9 O2 Sat by Pulse Oximetry: 94 Airway: patent Nausea: No Vomiting: No Pain Intensity: 2 Hydration Status: adequate Cardiopulmonary Status: Stable Mental Status/LOC: patient returned to baseline Follow-up Care/Observations: 00 Post-Anesthesia Complications: 0 Follow-up care needed: N/A Js Caba MD Mar 30, 2017 06:55
--- NOTE | 2017-03-30 07:56 | Brief Operative Note ---
Immediate Post Operative Note Operative Note Pre-op Diagnosis: Left hip femoral neck fracture Procedure: Left hip hemiarthroplasty Post-op Diagnosis: same as pre-op Findings: consistent w/pre-op dx studies Surgeon: Lakhwinder Anesthesia: general, regional Specimen: yes Complications: none Condition: stable Fluids: 100 ml Estimated Blood Loss: minimal Drains: none Implant(s) used?: Yes ROSMERY FRYE Mar 30, 2017 07:56
--- NOTE | 2017-03-30 07:57 | Orthopedic Progress Note ---
Orthopedic - Progress Note Subjective Symptoms: c/o post-op hip pain Additional Comments s/p left hip german-arthroplasty Objective Vital Signs Last 24 Hour Vital Signs Date Time Temp Pulse Resp B/P (MAP) Pulse Ox O2 Delivery O2 Flow Rate FiO2 03/30/17 06:55 74 18 94 03/30/17 04:12 97.9 74 18 112/63 94 Room Air 03/30/17 00:41 97.9 65 18 121/56 94 Nasal Cannula 3.0 03/29/17 21:09 60 111/61 03/29/17 20:25 97.5 60 19 111/61 97 Nasal Cannula 3.0 03/29/17 19:40 97.2 60 20 106/60 100 Nasal Cannula 3.0 03/29/17 19:30 60 20 104/63 100 Nasal Cannula 3.0 03/29/17 19:15 60 20 100/67 100 Nasal Cannula 3.0 03/29/17 19:00 60 20 94/58 100 Nasal Cannula 3.0 03/29/17 18:44 60 20 95/55 100 Nasal Cannula 3.0 03/29/17 18:41 60 20 99 03/29/17 18:39 60 20 94/52 100 Simple Mask 8.0 03/29/17 18:39 60 20 92/55 100 Simple Mask 8.0 03/29/17 18:34 98.3 60 20 92/54 100 Simple Mask 8.0 03/29/17 12:20 97.5 65 20 120/68 94 Room Air 03/29/17 11:44 98.2 03/29/17 08:55 62 106/56 03/29/17 08:00 98.2 62 18 106/56 95 Room Air Wound: clean Drains: none Neuro Status: normal Vascular Status: normal Assessment Procedure Performed Left hip hemiarthroplasty Plan Plan: PT, pain management, discharge plan Additional Comments To SNF/rehab when able Doing well WBAT with no restrictions ROSMERY FRYE Mar 30, 2017 07:57
[2017-03-30 08:00] VITALS: BP 118/59
--- NOTE | 2017-03-30 08:46 | Consultation ---
DATE OF CONSULTATION: 03/29/2017 PAIN MANAGEMENT CONSULTATION REFERRING PHYSICIAN: Maria Isabel Tran M.D. CONSULTING PHYSICIAN: Cristy Saldaña M.D. PHYSICIAN WELL POINT PUMPING SUPERVISOR: Mya Gonzales CHIEF COMPLAINT: Left hip pain. History Of Present Illness: This is a 76-year-old male, who is being seen on the Med/Surg floor of [facility] for initial comprehensive pain management consultation. The patient was admitted under the care of Dr. Tran, found to have left femoral neck fracture in outside facility on x-ray. Reports that he had fallen and unable to elevate his left leg. X-ray of the hip and femur were done showing the acute left femoral neck fracture. Due to this, he was admitted under the care of Dr. Tran and will be seen by Dr. Keane for a surgical consultation for possible left hip hemiarthroplasty. At this time, the patient is comfortable in the bed. No signs of pain or distress, on morphine 2 to 4 mg IV every four hours as needed for [id number] pain and is in no acute distress. Past Medical History: Hypertension, GI disorders, Parkinson, and seizure disorder. PAST SURGICAL HISTORY: Pacemaker placement. ALLERGIES: No known drug allergies. MEDICATIONS: 1. Aspirin. 2. Zithromax. 3. Bicalutamide. 4. Coreg. 5. Depakote. 6. Docusate. 7. Dorzolamide. 8. 9. 10. Lisinopril. 11. Risperdal. 12. Aldactone. 13. Flomax. 14. Temazepam. Social History: Denies smoking tobacco, drinking alcohol, or drug abuse. Review Of Systems: Denies rash, fever, chills, sweating, dizziness, drowsiness, blurred vision, sore throat, or change in weight. No shortness of breath, chest pain, palpitations, or cough. No nausea, vomiting, diarrhea, or blood in the stool or urine. No bowel or bladder incontinence. No dysuria. He is complaining of left hip pain. PHYSICAL EXAMINATION: GENERAL: Alert, awake, and oriented. Vital Signs: Blood pressure 106/56, heart rate is 62, oxygen saturation 95%, respirations 18, and temperature is 98.2 degrees Fahrenheit. Height is 6 feet, weight is 170 pounds. HEENT: PERRLA. Neck: Range of motion is full in all directions. No tenderness to paracervical muscles. No adenopathy. LUNGS: Decreased breath sounds bilaterally. ABDOMEN: Benign. Back: Range of motion is full in flexion and extension with tenderness to paraspinal muscles. No tenderness to trapezius or rhomboid muscles. Extremities: Upper extremity range of motion is full in all directions. Motor is intact. No cyanosis. No clubbing. No edema. Sensory is intact. Reflexes are unobtainable. No adenopathy. Lower extremity range of motion is decreased due to the patient's pain and condition with tenderness to palpation of left hip. Motor is unable to obtain due to the patient's severity of pain. Sensory is intact. Reflexes are not obtainable. No adenopathy. Assessment And Plan: This is a 76-year-old male with left hip fracture, left hip pain. The patient will continue on morphine 2 to 4 mg IV every 4 hours as needed for [id number] pain. He will be seen by Dr. Keane for surgical intervention as per the block cutter Dr. Tran. The patient was discussed with Dr. Saldaña and Dr. Saldaña concurred. We will follow the patient. Thank you very much for the courtesy of this consultation. Cristy Saldaña M.D. THIEN Gonzales DR: SERGE JOB#: [id number] CC:
--- NOTE | 2017-03-30 08:47 | Consultation ---
DATE OF CONSULTATION: 03/29/2017 CARDIOLOGY CONSULTATION CONSULTING PHYSICIAN: Stephen Cordero M.D. REFERRING PHYSICIAN: Maria Isabel Tran M.D. REASON FOR REFERRAL: Preoperative risk assessment. History Of Present Illness: The patient is an elderly gentleman with history of multiple medical problems including cardiomyopathy. The patient has had evaluations here on several prior occasions and has been cared for by Dr. Felton and Dr. Johnson for electrophysiology. He has had a diagnosis of dilated cardiomyopathy and had intracardiac defibrillator implanted by Dr. Johnson, Biotronik ICD in March 2016 and not clear if the patient has had any evaluations recently. Apparently, he had a fall approximately four days ago on the left side, also hit the front of his head, no loss of consciousness, was diagnosed with left femoral hip fracture on an outside facility x-ray and was transferred to the emergency room at the [facility] yesterday because of that. He actually denies any chest pain. Denies any shortness of breath at the present time. No PND or orthopnea. He uses two pillows. He states he does not walk much anymore and it is not clear to me how he fell. Past Medical History: Status post fall with a history of cardiomyopathy, ejection fraction of 25% to 30%, severe cardiomyopathy with Biotronik ICD, history of seizure disorder, as well as congestive heart failure, prior history of Jonathan permanent pacemaker implantation, history of transient ischemic attack, and systemic hypertension. 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 Medications: Based on the list provided in his chart includes temazepam , divalproex 750 mg twice daily, Pepcid, Colace 100 mg twice daily, Coreg 3.125 mg twice a day, aspirin 81 mg daily, Aldactone 25 mg daily, lisinopril 2.5 mg twice daily, Flomax 0.4 mg, risperidone 6 mg at nighttime, and bicalutamide 50 mg on a daily basis as well. Social History: He reportedly does not smoke or drink alcoholic beverages. He lives at a facility at the present time. Review Of Systems: Gastrointestinal: He denies any nausea, vomiting, or diarrhea. Genitourinary: Denies discomfort on urination. Pulmonary: Does admit to having had some coughing. No sputum production. Constitutional: Denies any fevers, chills, or night sweats. Neurologic: Denies any numbness or tingling sensation in his legs. PHYSICAL EXAMINATION: General: Shows to be elderly gentleman, in no respiratory distress, in fact, lying flat with IV going at 50 mL/hr, and does not appear to be in any respiratory distress whatsoever. LUNGS: Appear to be clear to auscultation. Cardiac: Distant heart sounds. Regular rhythm. No RV lift, heaves, or thrills noted. ABDOMEN: Soft and nontender. Positive bowel sounds. Extremities: There is no significant edema. No clubbing or cyanosis. Pain in the left hip is noted. Diagnostic And Imaging Studies: The chest x-ray shows no definite infiltrates or vascular congestion. Pacemaker in the left anterior chest. The heart is enlarged. The aorta is mildly enlarged. He did have a femur CT that showed acute left femoral neck fracture. He had a CT scan of his head that showed no acute intracranial bleed, mass effect, or edema. Moderate atrophy of the brain and chronic small vessel ischemic changes were noted. His electrocardiogram shows left bundle-branch conduction defect with sinus rhythm. His prior EKG from July 2015 shows sinus with left ventricular pacing complexes and this is from July of 2015. EKG in October 2016 showed left bundle-branch conduction defect, EKG similar to what he is having at this time, therefore the EKG changes are not new. His white count is 5.5, hemoglobin 11.3, and a platelet count of 92,000. His sodium is 137, potassium 4.5, chloride 101, bicarb 29, BUN 15, creatinine 0.8, and glucose of 94. Liver function tests are normal. Total CK of 284. Troponin was not checked during this hospitalization. Albumin of 3.1. TSH of 4.42. Coags, INR 1.2 and a PTT of 29 and no other findings. ASSESSMENT: 1. Known history of reported dilated cardiomyopathy. 2. Chronic congestive heart failure. 3. History of mitral regurgitation. 4. History of intracardiac defibrillator placement. 5. History of hepatic encephalopathy. 6. Transient ischemic attack and seizures previously. Plan: Dr. Tran, this patient was seen in cardiac consultation. At the time of this notation, he does not appear to be in any acute congestive heart failure. Lung exam is fine. He is able to lie down flat. I have not been able to find a stress test previously, but the notation from the food safety manager indicate that the patient has apparently history of dilated cardiomyopathy. He has had some evaluations by Dr. Johnson previously at [facility] in [place] apparently where he had his intracardiac defibrillator implanted. Nevertheless, his EKG is unchanged from back in October 2016. He is in need of hip replacement because of his fracture. He is at some risk of congestive heart failure. He has probably less risk of ischemic events at this time. I will discuss the case with Dr. Johnson, who has seen him in EP consultation to see if he has any information about his coronary status. He has no evidence of acute congestive heart failure. His surgery is scheduled to occur at approximately 2 o'clock this afternoon. His platelets are on the low side and that need to be monitored postoperatively to make sure there is no drop in the number of platelets. Since his admission, the platelets were in the 90s, previously in the 150s. Nevertheless, his risk of congestive heart failure is low intermediate. Watch intravenous fluid administration and I will follow the patient along with you. The patient was seen urgently at your request for his outcoming surgery. Stephen Cordero M.D. DR: LEONIDAS JOB#: [id number] CC:
[2017-03-30] MEDS: Docusate 100mg cap ORAL SCH ×3 (08:50→17:28)
[2017-03-30] MEDS: Depakote 500mg tab ORAL SCH (08:50)
[2017-03-30] MEDS: Tamsulosin 0.4mg cap ORAL SCH (08:50)
[2017-03-30] MEDS: Bicalutamide 50mg tab ORAL SCH (08:50)
[2017-03-30] MEDS: celeBREX 200mg Cap **SURGERY PATIENTS ONLY ORAL SCH (08:52)
[2017-03-30] MEDS: oxyCONTIN 20mg tab ORAL SCH (08:52)
[2017-03-30] MEDS ORDERED: Enoxaparin 40mg Inj SUBQ SCH (09:00)
--- NOTE | 2017-03-30 10:49 | Diagnostic Imaging Report ---
Indication: pain Findings: Single AP view of the pelvis was performed. Bipolar left hip hemiarthroplasty demonstrated. Alignment and position is satisfactory. Bones are osteopenic. Mantilla catheter noted. Impression: Status post left hip hemiarthroplasty. No complications identified postoperatively
[2017-03-30] MEDS: D5 1/2NS w/KCl 20mEq 1,000 ML IV SCH (11:05)
--- NOTE | 2017-03-30 11:14 | Diagnostic Imaging Report ---
Indication: Left hip replacement. Intraoperative imaging Findings: Single portable, partial AP view of the pelvis was performed. A left hip demonstrating replacement surgery. A femoral spacer is noted. Mantilla catheter noted. Impression: Intraoperative imaging
[2017-03-30 12:00] VITALS: BP 100/52
--- NOTE | 2017-03-30 12:18 | General Progress Note ---
Assessment/Plan Assessment/Plan (1) Left hip pain (2) Left hip fracture (3) S/p left hip hemiarthroplasty Patient will be continued on OxyContin at 10mg BID ATC hold for oversedation and [place] at 5/325mg Q4H PRN severe breakthrough pain. We will discontinue the Morphine and Dilaudid. D/w Dr. Saldaña and he concurred. Subjective Date patient seen: Mar 30, 2017 Time patient seen: 11:45 - am Allergies: Coded Allergies: No Known Allergies (Unverified , 08/20/15) Subjective Review Of Systems: Denies rash, fever, chills, sweating, dizziness, drowsiness, blurred vision, sore throat, or change in weight. No shortness of breath, chest pain, palpitations, or cough. No nausea, vomiting, diarrhea, or blood in the stool or urine. No bowel or bladder incontinence. No dysuria. Subjective: Patient is sitting up in bed and reports no pain at this time. He is s/p Left hip hemiarthroplasty and was started on Oxycontin 20mg BID, Dilaudid 2mg SubQ Q3H PRN, Morphine 4mg IV Q4H PRN and [place] 5/325mg 2 tabs Q4H PRN and [place] 7.5/325mg 1 tab Q4H PRN. Pt is no c/o pain at this time. He received 2 doses of Oxycontin and no breakthrough medication. Objective Last 24 Hour Vital Signs Date Time Temp Pulse Resp B/P (MAP) Pulse Ox O2 Delivery O2 Flow Rate FiO2 03/30/17 08:51 74 112/63 03/30/17 08:00 99.0 73 19 118/59 95 Room Air 03/30/17 06:55 74 18 94 03/30/17 04:12 97.9 74 18 112/63 94 Room Air 03/30/17 00:41 97.9 65 18 121/56 94 Nasal Cannula 3.0 03/29/17 21:09 60 111/61 03/29/17 20:25 97.5 60 19 111/61 97 Nasal Cannula 3.0 03/29/17 19:40 97.2 60 20 106/60 100 Nasal Cannula 3.0 03/29/17 19:30 60 20 104/63 100 Nasal Cannula 3.0 03/29/17 19:15 60 20 100/67 100 Nasal Cannula 3.0 03/29/17 19:00 60 20 94/58 100 Nasal Cannula 3.0 03/29/17 18:44 60 20 95/55 100 Nasal Cannula 3.0 03/29/17 18:41 60 20 99 03/29/17 18:39 60 20 94/52 100 Simple Mask 8.0 03/29/17 18:39 60 20 92/55 100 Simple Mask 8.0 03/29/17 18:34 98.3 60 20 92/54 100 Simple Mask 8.0 03/29/17 12:20 97.5 65 20 120/68 94 Room Air Height (Feet): 5 Height (Inches): 9.00 Weight (Pounds): 175 Objective GENERAL: Alert, awake, and oriented. HEENT: PERRLA. Neck: Range of motion is full in all directions. No tenderness to paracervical muscles. No adenopathy. LUNGS: Decreased breath sounds bilaterally. ABDOMEN: Benign. Back: Range of motion is full in flexion and extension with tenderness to paraspinal muscles. No tenderness to trapezius or rhomboid muscles. Extremities: bandages applied to left hip. Neuro: No changes. HANANE VALENZUELA Mar 30, 2017 12:18
[2017-03-30] MEDS ORDERED: Norco 5mg/325mg tab ORAL PRN (12:30)
--- NOTE | 2017-03-30 14:33 | Pulmonology Progress Note ---
Assessment/Plan Problems: (1) Fracture of femoral neck, left, closed (2) Hypertension (3) CVA (cerebral vascular accident) (4) End-stage systolic heart failure Assessment/Plan tolerated the surgery very well dc celebrex b/o affect on PLT pt is medically optimized for surgery hematology to see for low PLT titrate cardiac meds f/u PSA, CEA Subjective ROS Limited/Unobtainable: No Constitutional: Reports: no symptoms HEENT: Repors: no symptoms Respiratory: Reports: no symptoms Allergies: Coded Allergies: No Known Allergies (Unverified , 08/20/15) Objective Last 24 Hour Vital Signs Date Time Temp Pulse Resp B/P (MAP) Pulse Ox O2 Delivery O2 Flow Rate FiO2 03/30/17 12:00 98.3 72 19 100/52 99 Nasal Cannula 2.0 03/30/17 08:51 74 112/63 03/30/17 08:00 99.0 73 19 118/59 95 Room Air 03/30/17 06:55 74 18 94 03/30/17 04:12 97.9 74 18 112/63 94 Room Air 03/30/17 00:41 97.9 65 18 121/56 94 Nasal Cannula 3.0 03/29/17 21:09 60 111/61 03/29/17 20:25 97.5 60 19 111/61 97 Nasal Cannula 3.0 03/29/17 19:40 97.2 60 20 106/60 100 Nasal Cannula 3.0 03/29/17 19:30 60 20 104/63 100 Nasal Cannula 3.0 03/29/17 19:15 60 20 100/67 100 Nasal Cannula 3.0 03/29/17 19:00 60 20 94/58 100 Nasal Cannula 3.0 03/29/17 18:44 60 20 95/55 100 Nasal Cannula 3.0 03/29/17 18:41 60 20 99 03/29/17 18:39 60 20 94/52 100 Simple Mask 8.0 03/29/17 18:39 60 20 92/55 100 Simple Mask 8.0 03/29/17 18:34 98.3 60 20 92/54 100 Simple Mask 8.0 Intake and Output 03/30/17 03/31/17 19:00 07:00 Intake Total 440 ml Balance 440 ml Intake Oral 440 ml General Appearance: cachetic HEENT: normocephalic, atraumatic, anicteric Respiratory/Chest: chest wall non-tender, lungs clear Cardiovascular: normal rate Abdomen: normal bowel sounds, soft, non tender Extremities: no cyanosis Skin: no rash, no lesions Neurologic/Psychiatric: shot lighter II-XII grossly normal, normal mood/affect Lymphatic: no groin adenopathy Current Medications Medications (Trade) Dose Ordered Sig/Maureen Route PRN Reason Start Time Stop Time Status Last Admin Dose Admin Acetaminophen (Tylenol) 650 mg Q4H PRN ORAL fever 03/28/17 15:30 04/27/17 15:29 Acetaminophen/ Hydrocodone Bitart ([place] 5/325) 1 tab Q4H PRN ORAL severe breakthrough pain 03/30/17 12:30 04/06/17 12:29 Al Hydroxide/Mg Hydroxide (Mylanta II) 30 ml Q6H PRN ORAL dyspepsia 03/28/17 15:30 04/27/17 15:29 Bicalutamide (Casodex) 50 mg DAILY ORAL 03/29/17 09:00 04/03/17 08:59 03/30/17 08:50 Bisacodyl (Dulcolax) 10 mg Q12H PRN RECTAL Constipation 03/30/17 13:15 04/28/17 15:29 Carvedilol (Coreg) 3.125 mg EVERY 12 HOURS ORAL 03/29/17 21:00 04/28/17 20:59 03/30/17 08:51 Celecoxib (CeleBREX) 200 mg DAILY ORAL 03/30/17 09:00 04/29/17 08:59 03/30/17 08:52 Dextrose (Dextrose 50%) STAT PRN IV Hypoglycemia 03/28/17 15:30 04/27/17 15:29 Divalproex Sodium (Depakote) 500 mg Q12HR ORAL 03/28/17 21:00 04/27/17 20:59 03/30/17 08:50 Docusate Sodium (Colace) 100 mg THREE TIMES A DAY ORAL 03/29/17 21:00 04/28/17 20:59 03/30/17 13:12 Lorazepam (Ativan 2mg/ml 1ml) 0.5 mg Q4H PRN IV For Anxiety 03/28/17 15:30 04/04/17 15:29 Ondansetron HCl (Zofran) 4 mg Q6H PRN IVP Nausea & Vomiting 03/28/17 15:30 04/27/17 15:29 Oxycodone HCl (OxyCONTIN) 10 mg EVERY 12 HOURS ORAL 03/30/17 21:00 04/06/17 20:59 Polyethylene Glycol (Miralax) 17 gm DAILYPRN PRN ORAL Constipation 03/30/17 11:45 04/29/17 11:44 Risperidone (RisperDAL) 4 mg DAILY ORAL 03/29/17 09:00 04/28/17 08:59 03/30/17 08:50 Tamsulosin HCl (Flomax) 0.4 mg DAILY ORAL 03/29/17 09:00 04/28/17 08:59 03/30/17 08:50 Temazepam (Restoril) 7.5 mg HSPRN PRN ORAL Insomnia 03/29/17 15:30 04/05/17 15:29 Zolpidem Tartrate (Ambien) 5 mg HSPRN PRN ORAL Insomnia 03/28/17 15:30 04/04/17 15:29 03/30/17 00:53 RUIZ HOPPER Mar 30, 2017 14:33
--- NOTE | 2017-03-30 14:41 | Cardiac Electrophysiology PN ---
Subjective Subjective [id number] Objective Last 24 Hour Vital Signs Date Time Temp Pulse Resp B/P (MAP) Pulse Ox O2 Delivery O2 Flow Rate FiO2 03/30/17 12:00 98.3 72 19 100/52 99 Nasal Cannula 2.0 03/30/17 08:51 74 112/63 03/30/17 08:00 99.0 73 19 118/59 95 Room Air 03/30/17 06:55 74 18 94 03/30/17 04:12 97.9 74 18 112/63 94 Room Air 03/30/17 00:41 97.9 65 18 121/56 94 Nasal Cannula 3.0 03/29/17 21:09 60 111/61 03/29/17 20:25 97.5 60 19 111/61 97 Nasal Cannula 3.0 03/29/17 19:40 97.2 60 20 106/60 100 Nasal Cannula 3.0 03/29/17 19:30 60 20 104/63 100 Nasal Cannula 3.0 03/29/17 19:15 60 20 100/67 100 Nasal Cannula 3.0 03/29/17 19:00 60 20 94/58 100 Nasal Cannula 3.0 03/29/17 18:44 60 20 95/55 100 Nasal Cannula 3.0 03/29/17 18:41 60 20 99 03/29/17 18:39 60 20 94/52 100 Simple Mask 8.0 03/29/17 18:39 60 20 92/55 100 Simple Mask 8.0 03/29/17 18:34 98.3 60 20 92/54 100 Simple Mask 8.0 Intake and Output 03/30/17 03/31/17 19:00 07:00 Intake Total 440 ml Balance 440 ml Intake Oral 440 ml FERCHO DIAZ Mar 30, 2017 14:41
[2017-03-30 16:00] VITALS: BP 116/51
[2017-03-30] MEDS ORDERED: Tubing IV Secondary IV ONE (16:46)
[2017-03-30] MEDS ORDERED: D5 1/2NS 1000ml IV ONE (16:46)
[2017-03-30] MEDS: Miralax 17gm pkt ORAL PRN (17:32)
[2017-03-30 20:20] VITALS: BP 96/47
[2017-03-30] MEDS: oxyCONTIN 10mg tab ORAL SCH (21:00)
--- NOTE | 2017-03-30 22:40 | Consultation ---
History of Present Illness General Chief Complaint: Multiple Trauma/Fall Present Illness HPI 76 year old male with hx of parkinson, cardiomyopathy, ICD, endstage heart disease brought in evaluation of hip pain. the pt has anxiety, mood lability and insomnia. I treat him outpt. Allergies: Coded Allergies: No Known Allergies (Unverified , 08/20/15) Medication History Scheduled Aspirin* (Aspir 81*), 81 MG ORAL DAILY, (Reported) Azithromycin* (Zithromax*), 250 MG ORAL DAILY, (Reported) Bicalutamide* (Bicalutamide*), 50 MG ORAL DAILY, (Reported) Carvedilol (Coreg), 3.125 MG ORAL EVERY 12 HOURS Divalproex Sodium* (Depakote*), 500 MG ORAL Q12HR Docusate Sodium* (Docusate Sodium*), 100 MG ORAL TWICE A DAY, (Reported) Dorzolamide HCl/Timolol Maleat (Dorzolamide-Timolol Eye Drops), 1 DROP BOTH EYES AM, (Reported) Famotidine (Famotidine), 20 MG ORAL TWICE A DAY, (Reported) Guaifenesin (Robafen), 100 MG PO EVERY 6 HOURS, (Reported) Lisinopril* (Lisinopril*), 2.5 MG ORAL BID, (Reported) Risperidone* (Risperdal*), 4 MG ORAL DAILY, (Reported) Spironolactone (Aldactone), 25 MG ORAL DAILY Tamsulosin HCl (Flomax), 0.4 MG ORAL DAILY Temazepam (Temazepam*), 30 MG ORAL BEDTIME, (Reported) Patient History History Provided By: Patient, Medical Record, PMD Healthcare decision maker Resuscitation status Full Code Advanced Directive on File No Past Medical/Surgical History Past Medical/Surgical History: (1) Dizziness (2) Encounter for generalized patient complaints (3) TIA (transient ischemic attack) (4) Generalized weakness (5) CHF (congestive heart failure) (6) UTI (urinary tract infection) (7) Mitral regurgitation (8) Seizure disorder (9) Encephalopathy (10) Near syncope (11) Hip fracture (12) Fracture of femoral neck, left, closed (13) Elevated PSA (14) Pacemaker (15) CVA (cerebral vascular accident) (16) End-stage systolic heart failure (17) Hypertension (18) Cardiomyopathy (19) Closed left hip fracture Review of Systems Psychiatric: Reports: prior hx, anxiety, depressed feelings, emotional problems Physical Exam General Appearance: no apparent distress, alert Neurologic: alert, oriented x 3, responsive, depressed affect Last 24 Hour Vital Signs Date Time Temp Pulse Resp B/P (MAP) Pulse Ox O2 Delivery O2 Flow Rate FiO2 03/30/17 20:20 98.2 64 20 96/47 95 Room Air 03/30/17 16:00 97.5 69 19 116/51 97 Room Air 03/30/17 12:00 98.3 72 19 100/52 99 Nasal Cannula 2.0 03/30/17 08:51 74 112/63 03/30/17 08:00 99.0 73 19 118/59 95 Room Air 03/30/17 06:55 74 18 94 03/30/17 04:12 97.9 74 18 112/63 94 Room Air 03/30/17 00:41 97.9 65 18 121/56 94 Nasal Cannula 3.0 Intake and Output 03/30/17 03/31/17 19:00 07:00 Intake Total 600 ml Output Total 400 ml Balance 200 ml Intake Oral 600 ml Output Urine Total 400 ml # Voids 1 Height (Feet): 5 Height (Inches): 9.00 Weight (Pounds): 175 Medications Current Medications Medications (Trade) Dose Ordered Sig/Maureen Route PRN Reason Start Time Stop Time Status Last Admin Dose Admin Acetaminophen (Tylenol) 650 mg Q4H PRN ORAL fever 03/28/17 15:30 04/27/17 15:29 Acetaminophen/ Hydrocodone Bitart ([place] 5/325) 1 tab Q4H PRN ORAL severe breakthrough pain 03/30/17 12:30 04/06/17 12:29 Al Hydroxide/Mg Hydroxide (Mylanta II) 30 ml Q6H PRN ORAL dyspepsia 03/28/17 15:30 04/27/17 15:29 Bicalutamide (Casodex) 50 mg DAILY ORAL 03/29/17 09:00 04/03/17 08:59 03/30/17 08:50 Bisacodyl (Dulcolax) 10 mg Q12H PRN RECTAL Constipation 03/30/17 13:15 04/28/17 15:29 Carvedilol (Coreg) 3.125 mg EVERY 12 HOURS ORAL 03/29/17 21:00 04/28/17 20:59 03/30/17 08:51 Celecoxib (CeleBREX) 200 mg DAILY ORAL 03/30/17 09:00 04/29/17 08:59 03/30/17 08:52 Dextrose (Dextrose 50%) STAT PRN IV Hypoglycemia 03/28/17 15:30 04/27/17 15:29 Divalproex Sodium (Depakote) 500 mg Q12HR ORAL 03/28/17 21:00 04/27/17 20:59 03/30/17 08:50 Docusate Sodium (Colace) 100 mg THREE TIMES A DAY ORAL 03/29/17 21:00 04/28/17 20:59 03/30/17 17:28 Lisinopril (Zestril) 2.5 mg DAILY ORAL 03/31/17 09:00 04/30/17 08:59 Lorazepam (Ativan 2mg/ml 1ml) 0.5 mg Q4H PRN IV For Anxiety 03/28/17 15:30 04/04/17 15:29 Ondansetron HCl (Zofran) 4 mg Q6H PRN IVP Nausea & Vomiting 03/28/17 15:30 04/27/17 15:29 Oxycodone HCl (OxyCONTIN) 10 mg EVERY 12 HOURS ORAL 03/30/17 21:00 04/06/17 20:59 Polyethylene Glycol (Miralax) 17 gm DAILYPRN PRN ORAL Constipation 03/30/17 11:45 04/29/17 11:44 03/30/17 17:32 Risperidone (RisperDAL) 4 mg DAILY ORAL 03/29/17 09:00 04/28/17 08:59 03/30/17 08:50 Tamsulosin HCl (Flomax) 0.4 mg DAILY ORAL 03/29/17 09:00 04/28/17 08:59 03/30/17 08:50 Temazepam (Restoril) 7.5 mg HSPRN PRN ORAL Insomnia 03/29/17 15:30 04/05/17 15:29 Zolpidem Tartrate (Ambien) 5 mg HSPRN PRN ORAL Insomnia 03/28/17 15:30 04/04/17 15:29 03/30/17 00:53 Assessment/Plan Status: stable, progressing Assessment/Plan schizoaffective d/o changed the depakote to hs change the risperdal to hs Angella Mi M.D. Mar 30, 2017 22:40
--- NOTE | 2017-03-31 00:15 | Consultation ---
DATE OF CONSULTATION: 03/30/2017 CARDIAC ELECTROPHYSIOLOGY CONSULTATION CONSULTING PHYSICIAN: Kevin Johnson M.D. REFERRING PHYSICIAN: Maria Isabel Tran M.D. REASON FOR CONSULTATION: Evaluation of the patient's defibrillator. History Of Present Illness: The patient is a very pleasant gentleman under my cardiology care for many years with history of hypertension and severe dilated cardiomyopathy, who underwent upgrade of pacemaker to a Biotronik ICD in March 2016. The patient had a fall four days earlier to the admission that resulted in left femoral hip fracture. The patient was then transferred to [facility] and underwent open reduction and internal fixation. A Cardiac Electrophysiology consultation was requested for further evaluation and management. PAST MEDICAL HISTORY: 1. Hypertension. 2. Severe nonischemic cardiomyopathy with ejection fraction of 25%. 3. Upgrade of pacemaker to a Biotronik defibrillator. 4. TIA. 5. History of tremors. SOCIAL HISTORY: He does not smoke or drink alcohol. FAMILY HISTORY: Noncontributory. Review Of Systems: Review of systems was performed and was negative other what was mentioned in the history of present illness. PHYSICAL EXAMINATION: Vital Signs: Blood pressure is 100/52, pulse 72, respirations 18, and temperature 98.3 degrees. HEAD AND NECK: Shows no JVD. LUNGS: Coarse rhonchi. CARDIOVASCULAR: Shows regular S1 and S2 with no gallop or murmur. ABDOMEN: Soft. EXTREMITIES: Status post left hip surgery. Laboratory Data: Labs showed white count 5.5, hemoglobin 11.2, hematocrit 34.1, and platelet count of 92,000. Sodium 137, potassium 4.5, BUN of 15, creatinine 0.8, and glucose of 94. CK is 284. INR is 1.2. ASSESSMENT AND PLAN: 1. Status post Biotronik defibrillator implantation in March 2016. We will interrogate defibrillator to make sure it is functioning normally. 2. History of cardiomyopathy with ejection fraction of 25% to 30%. Continue Coreg 3.125 mg b.i.d. We will add lisinopril and Aldactone to the medical regimen. 3. Status post hip fracture and subsequent open reduction and internal fixation. 4. History of cerebrovascular accident. Thank very much, Dr. Tran, for allowing me to participate in the care of this patient. Please do not hesitate to contact me for any questions regarding my evaluation. Kevin Johnson M.D. DR: DIANE JOB#: [id number] CC:
[2017-03-31 00:33] VITALS: BP 100/52
--- NOTE | 2017-03-31 01:15 | Operative Note - Dictated ---
DATE OF OPERATION: 03/29/2017 SURGEON: Danielito Keane M.D. WASTE TREATMENT OPERATOR: None. ANESTHESIA: Regional plus general plus local. COMPLICATIONS: None. ANTIBIOTICS: Ancef. PREOPERATIVE DIAGNOSIS: Left hip fracture (femoral neck). POSTOPERATIVE DIAGNOSIS: Left hip fracture (femoral neck). Procedure Performed: Left hip hemiarthroplasty using the Microport Profemur Z classic femoral stem with short neck size 6 varus 8 degree with a 54 mm Gladiator Bipolar shell and 36 mm +0 mm medium femoral head (Lineage Transcend). Background History: The patient fell and sustained the above injury. All risks, benefits, and alternatives to surgical intervention were discussed in great detail. Risks included, but were not limited to, bleeding, infection, neurovascular injury, need for additional surgical intervention, failure of pain relief, arthrofibrosis, complications of anesthesia, blood clots, stroke, heart attack, and potentially . He understood these risks, amongst others including fracture, rotational deformity, and leg length discrepancy, and consent was signed. Procedure In Detail: The patient was brought in to the operating room and placed supine on the operating room table. The left lower extremity was correctly verified for surgical site and prepped and draped in standard sterile fashion. He was secured prior to prep and drape into the lateral decubitus position with all bony prominences appropriately padded on the pegboard. A posterior incision was utilized and hemostasis maintained using electrocautery. The fascia was incised in line with the wound and blunt dissection was carried down through the gluteus musculature. The conjoint tendon was readily identified and detached as distally as possible. The capsule was incised and hematoma cleared. Revision osteotomy was undertaken and the femoral head removed. It measured to a size 54. The acetabulum was cleared of all debris and attention WAS turned to preparing the femur. Using appropriately placed retractors, a box osteotome was used to gain a lateral starting point. Sequential reaming and broaching revealed appropriate fit and fill with a size 6 femoral stem. Trial reduction using a 54 mm outer shell and 36 mm femoral head with +0 (medium) neck length revealed clinically equal leg lengths. Skeletal equal leg lengths were confirmed with radiographs taken intraoperatively. He was stable with this construct in all positions including hip flexion to 90 degrees, hip flexion to 90 degrees with 85 degrees of internal rotation, position of sleep, position of sleep with 85 degrees internal rotation, external rotation, and full extension to 10 degrees with external rotation and a posterior applied pressure to the buttock. The real components were secured into position and there was no change in clinical equal leg lengths or radiographic equal leg lengths. No change in stability with the final construct when compared to the trial. Copious irrigation was utilized and finger sweep revealed no retained foreign body or debris. The surrounding tissues were injected with 60 mL of 25% Marcaine mixed with epinephrine, and Decadron. The capsule was reapproximated using #1 Vicryl and more superficial tissues including the conjoint tendon using 0 and 2-0 Vicryl. Monocryl was used in a subcuticular fashion. Steri-Strips were used over Mastisol. A dry sterile dressing was applied. There were no complications. I attest that I performed the entire operation. When he was placed supine, leg lengths were equal. He was transferred to recovery in good condition. Danielito Keane M.D. DR: NATALYA JOB#: [id number] CC:
[2017-03-31 04:00] VITALS: BP 116/56
[2017-03-31 07:57] VITALS: BP 123/60
[2017-03-31] MEDS: Docusate 100mg cap ORAL SCH ×3 (08:24→18:00)
[2017-03-31] MEDS: oxyCONTIN 10mg tab ORAL SCH ×2 (08:25→21:30)
[2017-03-31] MEDS: Lisinopril 2.5mg tab ORAL SCH (08:26)
[2017-03-31] MEDS: Tamsulosin 0.4mg cap ORAL SCH (08:26)
[2017-03-31] MEDS: Miralax 17gm pkt ORAL PRN (08:26)
[2017-03-31] MEDS: celeBREX 200mg Cap **SURGERY PATIENTS ONLY ORAL SCH (08:27)
[2017-03-31] MEDS: Bicalutamide 50mg tab ORAL SCH (08:39)
[2017-03-31 11:50] VITALS: BP 101/52
[2017-03-31 15:31] VITALS: BP 126/73
--- NOTE | 2017-03-31 15:33 | Pulmonology Progress Note ---
Assessment/Plan Problems: (1) Fracture of femoral neck, left, closed (2) Hypertension (3) CVA (cerebral vascular accident) (4) End-stage systolic heart failure Assessment/Plan tolerated the surgery very well hematology to see for low PLT titrate cardiac meds dc planning soon Subjective ROS Limited/Unobtainable: No Interval Events: pt wants to go back to assisted living and doesnt' want rehab at a sn Constitutional: Reports: no symptoms HEENT: Repors: no symptoms Respiratory: Reports: no symptoms Allergies: Coded Allergies: No Known Allergies (Unverified , 08/20/15) Objective Last 24 Hour Vital Signs Date Time Temp Pulse Resp B/P (MAP) Pulse Ox O2 Delivery O2 Flow Rate FiO2 03/31/17 11:50 98.2 72 20 101/52 92 Room Air 03/31/17 08:27 60 123/60 03/31/17 08:26 123/60 03/31/17 07:57 98.4 60 20 123/60 98 Room Air 03/31/17 04:00 98.1 66 19 116/56 97 Room Air 03/31/17 00:33 97.6 72 18 100/52 95 Room Air 03/30/17 21:00 66 108/48 03/30/17 20:20 98.2 64 20 96/47 95 Room Air 03/30/17 16:00 97.5 69 19 116/51 97 Room Air Intake and Output 03/31/17 04/01/17 19:00 07:00 Intake Total 460 ml Output Total 400 ml Balance 60 ml Intake Oral 460 ml Output Urine Total 400 ml General Appearance: WD/WN HEENT: normocephalic, atraumatic Respiratory/Chest: chest wall non-tender, lungs clear Cardiovascular: normal peripheral pulses, normal rate Abdomen: normal bowel sounds, soft, non tender Genitourinary: normal external genitalia Extremities: no clubbing Skin: no ulcers 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 Complete 03/28/17 19:50 Rectum VRE Culture - Final NO VANCOMYCIN RESISTANT ENTEROCOCCUS ... Complete Current Medications Medications (Trade) Dose Ordered Sig/Maureen Route PRN Reason Start Time Stop Time Status Last Admin Dose Admin Acetaminophen (Tylenol) 650 mg Q4H PRN ORAL fever 03/28/17 15:30 04/27/17 15:29 Acetaminophen/ Hydrocodone Bitart ([place] 5/325) 1 tab Q4H PRN ORAL severe breakthrough pain 03/30/17 12:30 04/06/17 12:29 Al Hydroxide/Mg Hydroxide (Mylanta II) 30 ml Q6H PRN ORAL dyspepsia 03/28/17 15:30 04/27/17 15:29 Bicalutamide (Casodex) 50 mg DAILY ORAL 03/29/17 09:00 04/03/17 08:59 03/31/17 08:39 Bisacodyl (Dulcolax) 10 mg Q12H PRN RECTAL Constipation 03/30/17 13:15 04/28/17 15:29 Carvedilol (Coreg) 3.125 mg EVERY 12 HOURS ORAL 03/29/17 21:00 04/28/17 20:59 03/31/17 08:27 Celecoxib (CeleBREX) 200 mg DAILY ORAL 03/30/17 09:00 04/29/17 08:59 03/31/17 08:27 Dextrose (Dextrose 50%) STAT PRN IV Hypoglycemia 03/28/17 15:30 04/27/17 15:29 Divalproex Sodium (Depakote) 1,000 mg BEDTIME ORAL 03/31/17 21:00 04/27/17 20:59 Docusate Sodium (Colace) 100 mg THREE TIMES A DAY ORAL 03/29/17 21:00 04/28/17 20:59 03/31/17 13:39 Lisinopril (Zestril) 2.5 mg DAILY ORAL 03/31/17 09:00 04/30/17 08:59 03/31/17 08:26 Lorazepam (Ativan 2mg/ml 1ml) 0.5 mg Q4H PRN IV For Anxiety 03/28/17 15:30 04/04/17 15:29 Ondansetron HCl (Zofran) 4 mg Q6H PRN IVP Nausea & Vomiting 03/28/17 15:30 04/27/17 15:29 Oxycodone HCl (OxyCONTIN) 10 mg EVERY 12 HOURS ORAL 03/30/17 21:00 04/06/17 20:59 03/31/17 08:25 Polyethylene Glycol (Miralax) 17 gm DAILYPRN PRN ORAL Constipation 03/30/17 11:45 04/29/17 11:44 03/31/17 08:26 Risperidone (RisperDAL) 4 mg BEDTIME ORAL 03/31/17 21:00 04/28/17 08:59 Tamsulosin HCl (Flomax) 0.4 mg DAILY ORAL 03/29/17 09:00 04/28/17 08:59 03/31/17 08:26 Temazepam (Restoril) 7.5 mg HSPRN PRN ORAL Insomnia 03/29/17 15:30 04/05/17 15:29 RUIZ HOPPER Mar 31, 2017 15:33
--- NOTE | 2017-03-31 17:47 | Cardiac Electrophysiology PN ---
Assessment/Plan Assessment/Plan 1. Status post Biotronik defibrillator implantation in March 2016. Interrogated, it is functioning normally. 2. History of cardiomyopathy with ejection fraction of 25% to 30%. Continue Coreg 3.125 mg b.i.d., lisinopril and add Aldactone 25 daily 3. Status post Left hip fracture and subsequent open reduction and internal fixation. 4. History of cerebrovascular accident. Subjective Subjective Doing very well. No chest pain or sob. Objective Last 24 Hour Vital Signs Date Time Temp Pulse Resp B/P (MAP) Pulse Ox O2 Delivery O2 Flow Rate FiO2 03/31/17 15:31 98.6 71 20 126/73 98 Room Air 03/31/17 11:50 98.2 72 20 101/52 92 Room Air 03/31/17 08:27 60 123/60 03/31/17 08:26 123/60 03/31/17 07:57 98.4 60 20 123/60 98 Room Air 03/31/17 04:00 98.1 66 19 116/56 97 Room Air 03/31/17 00:33 97.6 72 18 100/52 95 Room Air 03/30/17 21:00 66 108/48 03/30/17 20:20 98.2 64 20 96/47 95 Room Air Intake and Output 03/31/17 04/01/17 19:00 07:00 Intake Total 460 ml Output Total 400 ml Balance 60 ml Intake Oral 460 ml Output Urine Total 400 ml Microbiology Date/Time Source Procedure Growth Status 03/28/17 19:50 Nasal Nares MRSA Culture - Final NO METHICILLIN RESISTANT STAPH AUREUS... Complete 03/28/17 19:50 Rectum VRE Culture - Final NO VANCOMYCIN RESISTANT ENTEROCOCCUS ... Complete Objective HEAD AND NECK: Shows no JVD. LUNGS: Coarse rhonchi. CARDIOVASCULAR:regular S1 and S2 with no gallop or murmur.ICD left subclavian area ABDOMEN: Soft. EXTREMITIES: Status post left hip surgery. FERCHO DIAZ Mar 31, 2017 17:47
[2017-03-31 20:00] VITALS: BP 122/56
[2017-03-31] MEDS: Depakote 500mg tab ORAL SCH (21:30)
[2017-04-01] VITALS: BP 122/60
[2017-04-01 04:00] VITALS: BP 126/63
[2017-04-01] MEDS: Bicalutamide 50mg tab ORAL SCH (08:08)
[2017-04-01] MEDS: Spironolactone 25mg tab ORAL SCH (08:09)
[2017-04-01] MEDS: Lisinopril 2.5mg tab ORAL SCH (08:10)
[2017-04-01] MEDS: Tamsulosin 0.4mg cap ORAL SCH (08:11)
[2017-04-01] MEDS: oxyCONTIN 10mg tab ORAL SCH ×2 (08:13→21:14)
[2017-04-01] MEDS: celeBREX 200mg Cap **SURGERY PATIENTS ONLY ORAL SCH (08:14)
[2017-04-01] MEDS: Docusate 100mg cap ORAL SCH ×3 (08:14→18:35)
[2017-04-01 08:32] VITALS: BP 138/84
[2017-04-01 12:00] VITALS: BP 107/50
--- NOTE | 2017-04-01 12:26 | General Progress Note ---
Assessment/Plan Status: stable, progressing Subjective Date patient seen: Mar 31, 2017 Constitutional: Reports: malaise, weakness Neurologic/Psychiatric: Reports: anxiety, depressed, emotional problems Allergies: Coded Allergies: No Known Allergies (Unverified , 08/20/15) Objective Last 24 Hour Vital Signs Date Time Temp Pulse Resp B/P (MAP) Pulse Ox O2 Delivery O2 Flow Rate FiO2 04/01/17 08:32 98.1 94 20 138/84 100 Room Air 04/01/17 08:10 134/84 04/01/17 08:08 94 134/84 04/01/17 04:00 97.9 62 18 126/63 95 Room Air 04/01/17 00:00 98.4 61 18 122/60 96 Room Air 03/31/17 22:29 98.5 03/31/17 21:30 69 122/56 03/31/17 20:00 98.5 69 18 122/56 97 Room Air 03/31/17 15:31 98.6 71 20 126/73 98 Room Air Intake and Output 04/01/17 04/02/17 19:00 07:00 Intake Total 240 ml Output Total 600 ml Balance -360 ml Intake Oral 240 ml Output Urine Total 600 ml Height (Feet): 5 Height (Inches): 9.00 Weight (Pounds): 175 General Appearance: no apparent distress, alert, overweight Neurologic: alert, oriented x 3, responsive, depressed affect Angella Mi M.D. Apr 01, 2017 12:26
--- NOTE | 2017-04-01 15:15 | Cardiac Electrophysiology PN ---
Assessment/Plan Assessment/Plan 1. Status post Biotronik defibrillator implantation in March 2016 that is functioning normally. 2. History of cardiomyopathy with ejection fraction of 25% to 30%. Continue Coreg 3.125 mg b.i.d., lisinopril and Aldactone 25 daily 3. Status post Left hip fracture and subsequent open reduction and internal fixation. 4. History of cerebrovascular accident. Subjective Subjective Doing very well. No chest pain or sob. Objective Last 24 Hour Vital Signs Date Time Temp Pulse Resp B/P (MAP) Pulse Ox O2 Delivery O2 Flow Rate FiO2 04/01/17 12:00 97.7 62 18 107/50 99 Room Air 04/01/17 08:32 98.1 94 20 138/84 100 Room Air 04/01/17 08:10 134/84 04/01/17 08:08 94 134/84 04/01/17 04:00 97.9 62 18 126/63 95 Room Air 04/01/17 00:00 98.4 61 18 122/60 96 Room Air 03/31/17 22:29 98.5 03/31/17 21:30 69 122/56 03/31/17 20:00 98.5 69 18 122/56 97 Room Air 03/31/17 15:31 98.6 71 20 126/73 98 Room Air Intake and Output 04/01/17 04/02/17 19:00 07:00 Intake Total 480 ml Output Total 600 ml Balance -120 ml Intake Oral 480 ml Output Urine Total 600 ml Objective HEAD AND NECK: Shows no JVD. LUNGS: Coarse rhonchi. CARDIOVASCULAR: Nl S1 and S2 with no gallop or murmur.ICD left subclavian intact ABDOMEN: Soft. EXTREMITIES: Status post left hip surgery. FERCHO DIAZ Apr 01, 2017 15:15
[2017-04-01 16:00] VITALS: BP 134/59
--- NOTE | 2017-04-01 18:55 | Pulmonology Progress Note ---
Assessment/Plan Problems: (1) Fracture of femoral neck, left, closed (2) Hypertension (3) CVA (cerebral vascular accident) (4) End-stage systolic heart failure Assessment/Plan tolerated the surgery very well hematology to see for low PLT titrate cardiac meds doens't want to go to a rehab facility continue PT for a few more days. Subjective ROS Limited/Unobtainable: No Constitutional: Reports: no symptoms HEENT: Repors: no symptoms Respiratory: Reports: no symptoms Allergies: Coded Allergies: No Known Allergies (Unverified , 08/20/15) Objective Last 24 Hour Vital Signs Date Time Temp Pulse Resp B/P (MAP) Pulse Ox O2 Delivery O2 Flow Rate FiO2 04/01/17 16:00 97.8 62 20 134/59 95 Room Air 04/01/17 12:00 97.7 62 18 107/50 99 Room Air 04/01/17 08:32 98.1 94 20 138/84 100 Room Air 04/01/17 08:10 134/84 04/01/17 08:08 94 134/84 04/01/17 04:00 97.9 62 18 126/63 95 Room Air 04/01/17 00:00 98.4 61 18 122/60 96 Room Air 03/31/17 22:29 98.5 03/31/17 21:30 69 122/56 03/31/17 20:00 98.5 69 18 122/56 97 Room Air Intake and Output 04/01/17 04/02/17 19:00 07:00 Intake Total 720 ml Output Total 600 ml Balance 120 ml Intake Oral 720 ml Output Urine Total 600 ml # Voids 1 General Appearance: WD/WN HEENT: normocephalic, anicteric Respiratory/Chest: chest wall non-tender, lungs clear Cardiovascular: normal peripheral pulses, normal rate Abdomen: normal bowel sounds Extremities: no cyanosis Skin: no lesions Neurologic/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: 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 Current Medications Medications (Trade) Dose Ordered Sig/Maureen Route PRN Reason Start Time Stop Time Status Last Admin Dose Admin Acetaminophen (Tylenol) 650 mg Q4H PRN ORAL fever 03/28/17 15:30 04/27/17 15:29 Acetaminophen/ Hydrocodone Bitart ([place] 5/325) 1 tab Q4H PRN ORAL severe breakthrough pain 03/30/17 12:30 04/06/17 12:29 Al Hydroxide/Mg Hydroxide (Mylanta II) 30 ml Q6H PRN ORAL dyspepsia 03/28/17 15:30 04/27/17 15:29 Bicalutamide (Casodex) 50 mg DAILY ORAL 03/29/17 09:00 04/03/17 08:59 04/01/17 08:08 Bisacodyl (Dulcolax) 10 mg Q12H PRN RECTAL Constipation 03/30/17 13:15 04/28/17 15:29 Carvedilol (Coreg) 3.125 mg EVERY 12 HOURS ORAL 03/29/17 21:00 04/28/17 20:59 04/01/17 08:08 Celecoxib (CeleBREX) 200 mg DAILY ORAL 03/30/17 09:00 04/29/17 08:59 04/01/17 08:14 Dextrose (Dextrose 50%) STAT PRN IV Hypoglycemia 03/28/17 15:30 04/27/17 15:29 Divalproex Sodium (Depakote) 1,000 mg BEDTIME ORAL 03/31/17 21:00 04/27/17 20:59 03/31/17 21:30 Docusate Sodium (Colace) 100 mg THREE TIMES A DAY ORAL 03/29/17 21:00 04/28/17 20:59 04/01/17 18:35 Lisinopril (Zestril) 2.5 mg DAILY ORAL 03/31/17 09:00 04/30/17 08:59 04/01/17 08:10 Lorazepam (Ativan 2mg/ml 1ml) 0.5 mg Q4H PRN IV For Anxiety 03/28/17 15:30 04/04/17 15:29 Ondansetron HCl (Zofran) 4 mg Q6H PRN IVP Nausea & Vomiting 03/28/17 15:30 04/27/17 15:29 Oxycodone HCl (OxyCONTIN) 10 mg EVERY 12 HOURS ORAL 03/30/17 21:00 04/06/17 20:59 04/01/17 08:13 Polyethylene Glycol (Miralax) 17 gm DAILYPRN PRN ORAL Constipation 03/30/17 11:45 04/29/17 11:44 03/31/17 08:26 Risperidone (RisperDAL) 4 mg BEDTIME ORAL 03/31/17 21:00 04/28/17 08:59 03/31/17 21:29 Spironolactone (Aldactone) 25 mg DAILY ORAL 04/01/17 09:00 05/01/17 08:59 04/01/17 08:09 Tamsulosin HCl (Flomax) 0.4 mg DAILY ORAL 03/29/17 09:00 04/28/17 08:59 04/01/17 08:11 Temazepam (Restoril) 7.5 mg HSPRN PRN ORAL Insomnia 03/29/17 15:30 04/05/17 15:29 04/01/17 01:32 RUIZ HOPPER Apr 01, 2017 18:55
[2017-04-01 20:00] VITALS: BP 113/57
[2017-04-01] MEDS: Depakote 500mg tab ORAL SCH (21:14)
--- NOTE | 2017-04-01 22:30 | Progress Note ---
DATE: 03/31/2017 Subjective: The patient has presented with fatigue and depressed mood, some anxiety, emotionally liability, this is patient's baseline. No behavior issues at this time. Mental Status Examination: The patient alert and oriented x3, responsive, slightly irritable. Affect is constricted. Congruent with mood. Thought process is concrete. Thought content, no suicidal or homicidal ideation. ASSESSMENT: 1. Depression. 2. Bipolar disorder. PLAN: 1. The patient will be continued on current medication. 2. Provide the patient with supportive therapy and reality orientation. Angella Mi M.D. DR: SHARIFA JOB#: [id number] CC:
[2017-04-02 00:45] VITALS: BP 106/62
[2017-04-02 04:00] VITALS: BP 110/60
[2017-04-02 08:00] VITALS: BP 125/74
[2017-04-02] MEDS: Spironolactone 25mg tab ORAL SCH (09:31)
[2017-04-02] MEDS: Bicalutamide 50mg tab ORAL SCH (09:31)
[2017-04-02] MEDS: celeBREX 200mg Cap **SURGERY PATIENTS ONLY ORAL SCH (09:32)
[2017-04-02] MEDS: Docusate 100mg cap ORAL SCH ×3 (09:32→17:56)
[2017-04-02] MEDS: Tamsulosin 0.4mg cap ORAL SCH (09:33)
[2017-04-02] MEDS: Lisinopril 2.5mg tab ORAL SCH (09:33)
[2017-04-02] MEDS: oxyCONTIN 10mg tab ORAL SCH ×2 (09:33→20:56)
[2017-04-02 12:00] VITALS: BP 118/69
--- NOTE | 2017-04-02 15:55 | Cardiac Electrophysiology PN ---
Assessment/Plan Assessment/Plan 1. 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 Cardiomyopathy with ejection fraction of 25% to 30%.Continue Coreg 3.125 mg b.i.d., lisinopril and Aldactone 25 daily 3. Status post Left hip fracture and subsequent open reduction and internal fixation. 4. History of cerebrovascular accident. Subjective Subjective No chest pain or sob.No events overnight. DC planning Objective Last 24 Hour Vital Signs Date Time Temp Pulse Resp B/P (MAP) Pulse Ox O2 Delivery O2 Flow Rate FiO2 04/02/17 12:00 98.1 74 18 118/69 97 Room Air 04/02/17 09:33 125/71 04/02/17 09:32 69 125/71 04/02/17 08:00 98.0 69 18 125/74 97 Room Air 04/02/17 04:00 98.2 66 18 110/60 95 Room Air 04/02/17 00:45 98.1 63 20 106/62 95 Room Air 04/01/17 22:13 97.8 04/01/17 21:11 61 113/57 04/01/17 20:00 98.1 61 18 113/57 95 Room Air 04/01/17 16:00 97.8 62 20 134/59 95 Room Air Intake and Output 04/02/17 04/03/17 19:00 07:00 Intake Total 420 ml Output Total 900 ml Balance -480 ml Intake Oral 420 ml Output Urine Total 900 ml Objective HEAD AND NECK: Shows no JVD. LUNGS: Coarse rhonchi. CARDIOVASCULAR: Nl S1 and S2 with no gallop or murmur.ICD left subclavian intact ABDOMEN: Soft. EXTREMITIES: Status post left hip surgery. FERCHO DIAZ Apr 02, 2017 15:55
[2017-04-02 16:00] VITALS: BP 106/63
--- NOTE | 2017-04-02 16:15 | Pulmonology Progress Note ---
Assessment/Plan Problems: (1) Fracture of femoral neck, left, closed (2) Hypertension (3) CVA (cerebral vascular accident) (4) End-stage systolic heart failure Assessment/Plan tolerated the surgery very well hematology to see for low PLT titrate cardiac meds doens't want to go to a rehab facility continue PT for a few more days. labs in am probably dc on tuesday Subjective ROS Limited/Unobtainable: No Constitutional: Reports: no symptoms HEENT: Repors: no symptoms Respiratory: Reports: no symptoms Allergies: Coded Allergies: No Known Allergies (Unverified , 08/20/15) Objective Last 24 Hour Vital Signs Date Time Temp Pulse Resp B/P (MAP) Pulse Ox O2 Delivery O2 Flow Rate FiO2 04/02/17 12:00 98.1 74 18 118/69 97 Room Air 04/02/17 09:33 125/71 04/02/17 09:32 69 125/71 04/02/17 08:00 98.0 69 18 125/74 97 Room Air 04/02/17 04:00 98.2 66 18 110/60 95 Room Air 04/02/17 00:45 98.1 63 20 106/62 95 Room Air 04/01/17 22:13 97.8 04/01/17 21:11 61 113/57 04/01/17 20:00 98.1 61 18 113/57 95 Room Air Intake and Output 04/02/17 04/03/17 19:00 07:00 Intake Total 420 ml Output Total 900 ml Balance -480 ml Intake Oral 420 ml Output Urine Total 900 ml General Appearance: cachetic HEENT: normocephalic, atraumatic Respiratory/Chest: chest wall non-tender, lungs clear Cardiovascular: normal peripheral pulses, normal rate Abdomen: normal bowel sounds, soft, non tender Genitourinary: normal external genitalia Extremities: no clubbing Skin: no ulcers Neurologic/Psychiatric: no motor/sensory deficits Current Medications Medications (Trade) Dose Ordered Sig/Maureen Route PRN Reason Start Time Stop Time Status Last Admin Dose Admin Acetaminophen (Tylenol) 650 mg Q4H PRN ORAL fever 03/28/17 15:30 04/27/17 15:29 Acetaminophen/ Hydrocodone Bitart ([place] 5/325) 1 tab Q4H PRN ORAL severe breakthrough pain 03/30/17 12:30 04/06/17 12:29 Al Hydroxide/Mg Hydroxide (Mylanta II) 30 ml Q6H PRN ORAL dyspepsia 03/28/17 15:30 04/27/17 15:29 Bicalutamide (Casodex) 50 mg DAILY ORAL 03/29/17 09:00 04/03/17 08:59 04/02/17 09:31 Bisacodyl (Dulcolax) 10 mg Q12H PRN RECTAL Constipation 03/30/17 13:15 04/28/17 15:29 Carvedilol (Coreg) 3.125 mg EVERY 12 HOURS ORAL 03/29/17 21:00 04/28/17 20:59 04/02/17 09:32 Celecoxib (CeleBREX) 200 mg DAILY ORAL 03/30/17 09:00 04/29/17 08:59 04/02/17 09:32 Dextrose (Dextrose 50%) STAT PRN IV Hypoglycemia 03/28/17 15:30 04/27/17 15:29 Divalproex Sodium (Depakote) 1,000 mg BEDTIME ORAL 03/31/17 21:00 04/27/17 20:59 04/01/17 21:14 Docusate Sodium (Colace) 100 mg THREE TIMES A DAY ORAL 03/29/17 21:00 04/28/17 20:59 04/02/17 13:25 Lisinopril (Zestril) 2.5 mg DAILY ORAL 03/31/17 09:00 04/30/17 08:59 04/02/17 09:33 Lorazepam (Ativan 2mg/ml 1ml) 0.5 mg Q4H PRN IV For Anxiety 03/28/17 15:30 04/04/17 15:29 Ondansetron HCl (Zofran) 4 mg Q6H PRN IVP Nausea & Vomiting 03/28/17 15:30 04/27/17 15:29 Oxycodone HCl (OxyCONTIN) 10 mg EVERY 12 HOURS ORAL 03/30/17 21:00 04/06/17 20:59 04/02/17 09:33 Polyethylene Glycol (Miralax) 17 gm DAILYPRN PRN ORAL Constipation 03/30/17 11:45 04/29/17 11:44 03/31/17 08:26 Risperidone (RisperDAL) 4 mg BEDTIME ORAL 03/31/17 21:00 04/28/17 08:59 04/01/17 21:11 Spironolactone (Aldactone) 25 mg DAILY ORAL 04/01/17 09:00 05/01/17 08:59 04/02/17 09:31 Tamsulosin HCl (Flomax) 0.4 mg DAILY ORAL 03/29/17 09:00 04/28/17 08:59 04/02/17 09:33 Temazepam (Restoril) 7.5 mg HSPRN PRN ORAL Insomnia 03/29/17 15:30 04/05/17 15:29 04/02/17 00:02 RUIZ HOPPER Apr 02, 2017 16:15
[2017-04-02 20:01] VITALS: BP 110/58
[2017-04-02] MEDS: Depakote 500mg tab ORAL SCH (20:54)
[2017-04-03 00:18] VITALS: BP 115/56
[2017-04-03 04:49] VITALS: BP 109/58
[2017-04-03 07:47] LABS: EOSINOPHILS % (AUTO) 1.1 % (0.0-3.0); LYMPHOCYTES % (AUTO) 35.1 % (20.0-45.0); MEAN CORPUSCULAR HEMOGLOBIN 32.2 PG (27.0-31.0); MEAN CORPUSCULAR HGB CONC 34.8 G/DL (32.0-36.0); MEAN CORPUSCULAR VOLUME 93 FL (80-99); MEAN PLATELET VOLUME 5.3 FL (6.5-10.1); MONOCYTES % (AUTO) 12.7 % (1.0-10.0); NEUTROPHILS % (AUTO) 50.1 % (45.0-75.0); PLATELET COUNT 187 K/UL (150-450); RED BLOOD COUNT 2.93 M/UL (4.70-6.10); RED CELL DISTRIBUTION WIDTH 13.9 % (11.6-14.8); WHITE BLOOD COUNT 6.1 K/UL (4.8-10.8)
[2017-04-03 08:00] VITALS: BP 102/56
[2017-04-03] MEDS: Spironolactone 25mg tab ORAL SCH (08:28)
[2017-04-03] MEDS: Docusate 100mg cap ORAL SCH ×3 (08:29→17:01)
[2017-04-03] MEDS: celeBREX 200mg Cap **SURGERY PATIENTS ONLY ORAL SCH (08:29)
[2017-04-03] MEDS: Tamsulosin 0.4mg cap ORAL SCH (08:30)
[2017-04-03] MEDS: Lisinopril 2.5mg tab ORAL SCH (08:30)
[2017-04-03] MEDS: oxyCONTIN 10mg tab ORAL SCH ×2 (08:30→20:56)
[2017-04-03 08:32] LABS: ALANINE AMINOTRANSFERASE 8 U/L (3-41); ALBUMIN/GLOBULIN RATIO 0.6 (1.0-2.7); ANION GAP 11 (5-15); ASPARTATE AMINO TRANSFERASE 19 U/L (5-40); CALCIUM 9.2 mg/dL (8.6-10.2); CARBON DIOXIDE 29 mEQ/L (20-30); CHLORIDE 103 mEQ/L (98-107); CREATININE 0.8 mg/dL (0.7-1.2); HEMOLYSIS 1; MAGNESIUM 1.7 mg/dL (1.7-2.5); PHOSPHORUS 3.7 mg/dL (2.5-4.8); POTASSIUM 4.5 mEQ/L (3.4-4.9); SODIUM 143 mEQ/L (135-145); TOTAL PROTEIN 7.3 g/dL (6.6-8.7)
--- NOTE | 2017-04-03 11:37 | General Progress Note ---
Assessment/Plan Assessment/Plan (1) Left hip pain (2) Left hip fracture (3) S/p left hip hemiarthroplasty Patient will be continued on OxyContin and [place]. D/w Dr. Saldaña and he concurred. Subjective Date patient seen: Apr 03, 2017 Time patient seen: 11:30 - am Allergies: Coded Allergies: No Known Allergies (Unverified , 08/20/15) Subjective Review Of Systems: Denies rash, fever, chills, sweating, dizziness, drowsiness, blurred vision, sore throat, or change in weight. No shortness of breath, chest pain, palpitations, or cough. No nausea, vomiting, diarrhea, or blood in the stool or urine. No bowel or bladder incontinence. No dysuria. Subjective: Patient is sitting up in chair. Pain as per patient is a 6/10. Doing PT to the best of his abilities. He has received the Oxycontin twice a day however has not requested any [place] for breakthrough pain. Objective Last 24 Hour Vital Signs Date Time Temp Pulse Resp B/P (MAP) Pulse Ox O2 Delivery O2 Flow Rate FiO2 04/03/17 09:29 97.6 04/03/17 08:30 102/63 04/03/17 08:29 73 102/58 04/03/17 08:00 98.1 73 18 102/56 95 Room Air 04/03/17 04:49 97.6 62 19 109/58 98 Room Air 04/03/17 00:18 97.8 60 18 115/56 100 Room Air 04/02/17 20:52 60 110/58 04/02/17 20:01 97.7 60 17 110/58 96 Room Air 04/02/17 16:00 98.0 70 20 106/63 98 Room Air 04/02/17 12:00 98.1 74 18 118/69 97 Room Air Intake and Output 04/03/17 04/04/17 19:00 07:00 Intake Total 240 ml Balance 240 ml Intake Oral 240 ml # Voids 1 # Bowel Movements 1 Laboratory Tests 04/03/17 05:40: White Blood Count 6.1, Red Blood Count 2.93L, Hemoglobin 9.4L, Hematocrit 27.1L , Mean Corpuscular Volume 93, Mean Corpuscular Hemoglobin 32.2H, Mean Corpuscular Hemoglobin Concent 34.8, Red Cell Distribution Width 13.9, Platelet Count 187, Mean Platelet Volume 5.3L, Neutrophils (%) (Auto) 50.1, Lymphocytes ( %) (Auto) 35.1, Monocytes (%) (Auto) 12.7H, Eosinophils (%) (Auto) 1.1, Basophils (%) (Auto) 1.0, Sodium Level 143, Potassium Level 4.5, Chloride Level 103, Carbon Dioxide Level 29, Anion Gap 11, Blood Urea Nitrogen 23, Creatinine 0.8, Estimat Glomerular Filtration Rate , Glucose Level 76, Calcium Level 9.2, Phosphorus Level 3.7, Magnesium Level 1.7, Total Bilirubin 0.5, Aspartate Amino Transf (AST/SGOT) 19, Alanine Aminotransferase (ALT/SGPT) 8, Alkaline Phosphatase 57, Total Protein 7.3, Albumin 3.0L, Globulin 4.3, Albumin/Globulin Ratio 0.6L Height (Feet): 5 Height (Inches): 9.00 Weight (Pounds): 175 Objective GENERAL: Alert, awake, and oriented. HEENT: PERRLA. Neck: Range of motion is full in all directions. No tenderness to paracervical muscles. No adenopathy. LUNGS: Decreased breath sounds bilaterally. ABDOMEN: Benign. Back: Range of motion is full in flexion and extension with tenderness to paraspinal muscles. No tenderness to trapezius or rhomboid muscles. Extremities: bandages applied to left hip. Neuro: No changes. HANANE VALENZUELA Apr 03, 2017 11:37
[2017-04-03 12:00] VITALS: BP 103/55
--- NOTE | 2017-04-03 12:12 | Pulmonology Progress Note ---
Assessment/Plan Problems: (1) Fracture of femoral neck, left, closed (2) Hypertension (3) CVA (cerebral vascular accident) (4) End-stage systolic heart failure Assessment/Plan hematology to see for low PLT titrate cardiac meds doens't want to go to a rehab facility continue PT for a few more days. labs in am probably dc on tuesday Subjective Constitutional: Reports: no symptoms HEENT: Repors: no symptoms Respiratory: Reports: no symptoms Allergies: Coded Allergies: No Known Allergies (Unverified , 08/20/15) Objective Last 24 Hour Vital Signs Date Time Temp Pulse Resp B/P (MAP) Pulse Ox O2 Delivery O2 Flow Rate FiO2 04/03/17 09:29 97.6 04/03/17 08:30 102/63 04/03/17 08:29 73 102/58 04/03/17 08:00 98.1 73 18 102/56 95 Room Air 04/03/17 04:49 97.6 62 19 109/58 98 Room Air 04/03/17 00:18 97.8 60 18 115/56 100 Room Air 04/02/17 20:52 60 110/58 04/02/17 20:01 97.7 60 17 110/58 96 Room Air 04/02/17 16:00 98.0 70 20 106/63 98 Room Air Intake and Output 04/03/17 04/04/17 19:00 07:00 Intake Total 240 ml Balance 240 ml Intake Oral 240 ml # Voids 1 # Bowel Movements 1 General Appearance: WD/WN HEENT: normocephalic, atraumatic Respiratory/Chest: chest wall non-tender, normal breath sounds Cardiovascular: normal peripheral pulses, normal rate Abdomen: normal bowel sounds, soft, non tender Laboratory Tests 04/03/17 05:40: White Blood Count 6.1, Red Blood Count 2.93L, Hemoglobin 9.4L, Hematocrit 27.1L , Mean Corpuscular Volume 93, Mean Corpuscular Hemoglobin 32.2H, Mean Corpuscular Hemoglobin Concent 34.8, Red Cell Distribution Width 13.9, Platelet Count 187, Mean Platelet Volume 5.3L, Neutrophils (%) (Auto) 50.1, Lymphocytes ( %) (Auto) 35.1, Monocytes (%) (Auto) 12.7H, Eosinophils (%) (Auto) 1.1, Basophils (%) (Auto) 1.0, Sodium Level 143, Potassium Level 4.5, Chloride Level 103, Carbon Dioxide Level 29, Anion Gap 11, Blood Urea Nitrogen 23, Creatinine 0.8, Estimat Glomerular Filtration Rate , Glucose Level 76, Calcium Level 9.2, Phosphorus Level 3.7, Magnesium Level 1.7, Total Bilirubin 0.5, Aspartate Amino Transf (AST/SGOT) 19, Alanine Aminotransferase (ALT/SGPT) 8, Alkaline Phosphatase 57, Total Protein 7.3, Albumin 3.0L, Globulin 4.3, Albumin/Globulin Ratio 0.6L Current Medications Medications (Trade) Dose Ordered Sig/Maureen Route PRN Reason Start Time Stop Time Status Last Admin Dose Admin Acetaminophen (Tylenol) 650 mg Q4H PRN ORAL fever 03/28/17 15:30 04/27/17 15:29 Acetaminophen/ Hydrocodone Bitart ([place] 5/325) 1 tab Q4H PRN ORAL severe breakthrough pain 03/30/17 12:30 04/06/17 12:29 Al Hydroxide/Mg Hydroxide (Mylanta II) 30 ml Q6H PRN ORAL dyspepsia 03/28/17 15:30 04/27/17 15:29 Bisacodyl (Dulcolax) 10 mg Q12H PRN RECTAL Constipation 03/30/17 13:15 04/28/17 15:29 Carvedilol (Coreg) 3.125 mg EVERY 12 HOURS ORAL 03/29/17 21:00 04/28/17 20:59 04/02/17 09:32 Celecoxib (CeleBREX) 200 mg DAILY ORAL 03/30/17 09:00 04/29/17 08:59 04/03/17 08:29 Dextrose (Dextrose 50%) STAT PRN IV Hypoglycemia 03/28/17 15:30 04/27/17 15:29 Divalproex Sodium (Depakote) 1,000 mg BEDTIME ORAL 03/31/17 21:00 04/27/17 20:59 04/02/17 20:54 Docusate Sodium (Colace) 100 mg THREE TIMES A DAY ORAL 03/29/17 21:00 04/28/17 20:59 04/03/17 08:29 Lisinopril (Zestril) 2.5 mg DAILY ORAL 03/31/17 09:00 04/30/17 08:59 04/02/17 09:33 Lorazepam (Ativan 2mg/ml 1ml) 0.5 mg Q4H PRN IV For Anxiety 03/28/17 15:30 04/04/17 15:29 Ondansetron HCl (Zofran) 4 mg Q6H PRN IVP Nausea & Vomiting 03/28/17 15:30 04/27/17 15:29 Oxycodone HCl (OxyCONTIN) 10 mg EVERY 12 HOURS ORAL 03/30/17 21:00 04/06/17 20:59 04/03/17 08:30 Polyethylene Glycol (Miralax) 17 gm DAILYPRN PRN ORAL Constipation 03/30/17 11:45 04/29/17 11:44 03/31/17 08:26 Risperidone (RisperDAL) 4 mg BEDTIME ORAL 03/31/17 21:00 04/28/17 08:59 04/02/17 20:56 Spironolactone (Aldactone) 25 mg DAILY ORAL 04/01/17 09:00 05/01/17 08:59 04/03/17 08:28 Tamsulosin HCl (Flomax) 0.4 mg DAILY ORAL 03/29/17 09:00 04/28/17 08:59 04/03/17 08:30 Temazepam (Restoril) 7.5 mg HSPRN PRN ORAL Insomnia 03/29/17 15:30 04/05/17 15:29 04/03/17 01:43 RUIZ HOPPER Apr 03, 2017 12:12
[2017-04-03 16:00] VITALS: BP 106/53
[2017-04-03 20:00] VITALS: BP 111/57
[2017-04-03] MEDS: Depakote 500mg tab ORAL SCH (20:40)
[2017-04-04 00:39] LABS: PSA % FREE >10.0 % (.); PSA FREE 0.01 ng/mL; PSA TOTAL <0.1 ng/mL (0.0-4.0)
[2017-04-04 04:00] VITALS: BP 114/60
[2017-04-04 08:00] VITALS: BP 108/62
--- NOTE | 2017-04-04 08:19 | General Progress Note ---
Assessment/Plan Assessment/Plan (1) Left hip pain (2) Left hip fracture (3) S/p left hip hemiarthroplasty Patient will be continued on OxyContin and norco. D/w Dr. Saldaña and he concurred. Subjective Date patient seen: Apr 04, 2017 Time patient seen: 07:15 - am Allergies: Coded Allergies: No Known Allergies (Unverified , 08/20/15) Subjective Review Of Systems: Denies rash, fever, chills, sweating, dizziness, drowsiness, blurred vision, sore throat, or change in weight. No shortness of breath, chest pain, palpitations, or cough. No nausea, vomiting, diarrhea, or blood in the stool or urine. No bowel or bladder incontinence. No dysuria. Subjective: Patient reports that his pain has been tolerated on the Oxycontin. He has no new complaints. Objective Last 24 Hour Vital Signs Date Time Temp Pulse Resp B/P (MAP) Pulse Ox O2 Delivery O2 Flow Rate FiO2 04/04/17 04:00 98.7 61 16 114/60 96 Room Air 04/03/17 20:54 62 111/57 04/03/17 20:00 98.3 62 18 111/57 96 Room Air 04/03/17 16:00 97.6 68 18 106/53 96 Room Air 04/03/17 12:00 98.0 80 18 103/55 98 Room Air 04/03/17 09:29 97.6 04/03/17 08:30 102/63 04/03/17 08:29 73 102/58 Height (Feet): 5 Height (Inches): 9.00 Weight (Pounds): 175 Objective GENERAL: Alert, awake, and oriented. HEENT: PERRLA. Neck: Range of motion is full in all directions. No tenderness to paracervical muscles. No adenopathy. LUNGS: Decreased breath sounds bilaterally. ABDOMEN: Benign. Back: Range of motion is full in flexion and extension with tenderness to paraspinal muscles. No tenderness to trapezius or rhomboid muscles. Extremities: bandages applied to left hip. Neuro: No changes. HANANE VALENZUELA Apr 04, 2017 08:19
[2017-04-04] MEDS: Lisinopril 2.5mg tab ORAL SCH (09:00)
[2017-04-04] MEDS: celeBREX 200mg Cap **SURGERY PATIENTS ONLY ORAL SCH (10:11)
[2017-04-04] MEDS: Tamsulosin 0.4mg cap ORAL SCH (10:11)
[2017-04-04] MEDS: Spironolactone 25mg tab ORAL SCH (10:11)
[2017-04-04] MEDS: Docusate 100mg cap ORAL SCH ×3 (10:12→17:31)
[2017-04-04] MEDS: oxyCONTIN 10mg tab ORAL SCH (10:15)
[2017-04-04 12:00] VITALS: BP 100/54
--- NOTE | 2017-04-04 14:25 | General Progress Note ---
Assessment/Plan Status: stable, progressing Subjective Neurologic/Psychiatric: Reports: anxiety, depressed, emotional problems Allergies: Coded Allergies: No Known Allergies (Unverified , 08/20/15) Subjective the pt is doing well c/o anxiety does not want rehab Objective Last 24 Hour Vital Signs Date Time Temp Pulse Resp B/P (MAP) Pulse Ox O2 Delivery O2 Flow Rate FiO2 04/04/17 12:00 97.8 61 17 100/54 96 Room Air 04/04/17 09:00 108/62 04/04/17 09:00 69 108/62 04/04/17 08:00 98.4 69 18 108/62 97 Room Air 04/04/17 04:00 98.7 61 16 114/60 96 Room Air 04/03/17 20:54 62 111/57 04/03/17 20:00 98.3 62 18 111/57 96 Room Air 04/03/17 16:00 97.6 68 18 106/53 96 Room Air Intake and Output 04/04/17 04/05/17 19:00 07:00 Intake Total 350 ml Balance 350 ml Intake Oral 350 ml # Voids 1 Height (Feet): 5 Height (Inches): 9.00 Weight (Pounds): 175 General Appearance: no apparent distress, alert Neurologic: alert, oriented x 3, responsive, depressed affect Angella Mi M.D. Apr 04, 2017 14:25
--- NOTE | 2017-04-04 15:22 | Pulmonology Progress Note ---
Assessment/Plan Problems: (1) Fracture of femoral neck, left, closed (2) Hypertension (3) CVA (cerebral vascular accident) (4) End-stage systolic heart failure Assessment/Plan doing better rehab symptoamtic treatment Subjective ROS Limited/Unobtainable: No Constitutional: Reports: no symptoms HEENT: Repors: no symptoms Respiratory: Reports: no symptoms Allergies: Coded Allergies: No Known Allergies (Unverified , 08/20/15) Objective Last 24 Hour Vital Signs Date Time Temp Pulse Resp B/P (MAP) Pulse Ox O2 Delivery O2 Flow Rate FiO2 04/04/17 12:00 97.8 61 17 100/54 96 Room Air 04/04/17 09:00 108/62 04/04/17 09:00 69 108/62 04/04/17 08:00 98.4 69 18 108/62 97 Room Air 04/04/17 04:00 98.7 61 16 114/60 96 Room Air 04/03/17 20:54 62 111/57 04/03/17 20:00 98.3 62 18 111/57 96 Room Air 04/03/17 16:00 97.6 68 18 106/53 96 Room Air Intake and Output 04/04/17 04/05/17 19:00 07:00 Intake Total 350 ml Balance 350 ml Intake Oral 350 ml # Voids 1 General Appearance: WD/WN HEENT: normocephalic, atraumatic Respiratory/Chest: chest wall non-tender, lungs clear Cardiovascular: normal peripheral pulses, normal rate, regular rhythm Abdomen: normal bowel sounds, soft, non tender Genitourinary: normal external genitalia Neurologic/Psychiatric: 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 normal, no motor/sensory deficits Current Medications Medications (Trade) Dose Ordered Sig/Maureen Route PRN Reason Start Time Stop Time Status Last Admin Dose Admin Acetaminophen (Tylenol) 650 mg Q4H PRN ORAL fever 03/28/17 15:30 04/27/17 15:29 Acetaminophen/ Hydrocodone Bitart ([place] 5/325) 1 tab Q4H PRN ORAL severe breakthrough pain 03/30/17 12:30 04/06/17 12:29 Al Hydroxide/Mg Hydroxide (Mylanta II) 30 ml Q6H PRN ORAL dyspepsia 03/28/17 15:30 04/27/17 15:29 Bisacodyl (Dulcolax) 10 mg Q12H PRN RECTAL Constipation 03/30/17 13:15 04/28/17 15:29 Carvedilol (Coreg) 3.125 mg EVERY 12 HOURS ORAL 03/29/17 21:00 04/28/17 20:59 04/02/17 09:32 Celecoxib (CeleBREX) 200 mg DAILY ORAL 03/30/17 09:00 04/29/17 08:59 04/04/17 10:11 Dextrose (Dextrose 50%) STAT PRN IV Hypoglycemia 03/28/17 15:30 04/27/17 15:29 Divalproex Sodium (Depakote) 1,000 mg BEDTIME ORAL 03/31/17 21:00 04/27/17 20:59 04/03/17 20:40 Docusate Sodium (Colace) 100 mg THREE TIMES A DAY ORAL 03/29/17 21:00 04/28/17 20:59 04/04/17 10:12 Lisinopril (Zestril) 2.5 mg DAILY ORAL 03/31/17 09:00 04/30/17 08:59 04/02/17 09:33 Lorazepam (Ativan 2mg/ml 1ml) 0.5 mg Q4H PRN IV For Anxiety 03/28/17 15:30 04/04/17 15:29 Ondansetron HCl (Zofran) 4 mg Q6H PRN IVP Nausea & Vomiting 03/28/17 15:30 04/27/17 15:29 Oxycodone HCl (OxyCONTIN) 10 mg EVERY 12 HOURS ORAL 03/30/17 21:00 04/06/17 20:59 04/04/17 10:15 Polyethylene Glycol (Miralax) 17 gm DAILYPRN PRN ORAL Constipation 03/30/17 11:45 04/29/17 11:44 03/31/17 08:26 Risperidone (RisperDAL) 4 mg BEDTIME ORAL 03/31/17 21:00 04/28/17 08:59 04/03/17 20:40 Spironolactone (Aldactone) 25 mg DAILY ORAL 04/01/17 09:00 05/01/17 08:59 04/04/17 10:11 Tamsulosin HCl (Flomax) 0.4 mg DAILY ORAL 03/29/17 09:00 04/28/17 08:59 04/04/17 10:11 Temazepam (Restoril) 7.5 mg HSPRN PRN ORAL Insomnia 03/29/17 15:30 04/05/17 15:29 04/03/17 01:43 RUIZ HOPPER Apr 04, 2017 15:22
[2017-04-04 16:00] VITALS: BP 100/57
--- NOTE | 2017-04-04 16:37 | Cardiac Electrophysiology PN ---
Assessment/Plan Assessment/Plan 1. 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 Cardiomyopathy with ejection fraction of 25% %.Continue Coreg 3.125 mg b.i.d. , lisinopril and Aldactone 25 daily 3. Status post Left hip fracture and subsequent open reduction and internal fixation. 4. History of cerebrovascular accident. OK to DC Subjective Subjective No chest pain or sob.No events overnight. DC planning today. Objective Last 24 Hour Vital Signs Date Time Temp Pulse Resp B/P (MAP) Pulse Ox O2 Delivery O2 Flow Rate FiO2 04/04/17 16:00 98.4 61 19 100/57 96 Room Air 04/04/17 12:00 97.8 61 17 100/54 96 Room Air 04/04/17 09:00 108/62 04/04/17 09:00 69 108/62 04/04/17 08:00 98.4 69 18 108/62 97 Room Air 04/04/17 04:00 98.7 61 16 114/60 96 Room Air 04/03/17 20:54 62 111/57 04/03/17 20:00 98.3 62 18 111/57 96 Room Air Intake and Output 04/04/17 04/05/17 19:00 07:00 Intake Total 350 ml Balance 350 ml Intake Oral 350 ml # Voids 1 Objective HEAD AND NECK: Shows no JVD. LUNGS: Coarse rhonchi. CARDIOVASCULAR: Nl S1 and S2 with no gallop or murmur.ICD left subclavian intact ABDOMEN: Soft. EXTREMITIES: Status post left hip surgery. FERCHO DIAZ Apr 04, 2017 16:36
--- NOTE | 2017-04-05 16:55 | Discharge Summary ---
Discharge Summary Hospital Course Date of Admission Mar 28, 2017 at 16:03 Date of Discharge Apr 04, 2017 at 18:05 Admitting Diagnosis hip fracture HPI Van Kidd Jr is a 76 year old male who was admitted on Mar 28, 2017 at 16: 03 for Hip Fracture Hospital Course dc summary #[id number] Discharge Medications Continued Medications: Carvedilol (Coreg) 3.125 Mg Tab 3.125 MG ORAL EVERY 12 HOURS, #60 TAB Divalproex Sodium* (Depakote*) 250 Mg Tablet.dr 500 MG ORAL Q12HR, #60 TAB Risperidone* (Risperdal*) 2 Mg Tablet 4 MG ORAL DAILY, #30 TAB 0 Refills Spironolactone (Aldactone) 25 Mg Tablet 25 MG ORAL DAILY, #30 TAB Tamsulosin HCl (Flomax) 0.4 Mg Cap 0.4 MG ORAL DAILY, #30 CAP Discharge Condition Upon Discharge: stable Discharge Disposition Patient was discharged to SNF for rehabilitation Discharge Diagnoses: Discharge Instructions Discharge Instructions Special Instructions I have been assigned to complete a D/C Summary on this account. I was not involved in the patient management Precious Yoon NP ([place]) Apr 05, 2017 16:55
--- NOTE | 2017-04-05 17:26 | General Progress Note ---
Assessment/Plan Status: stable, progressing Subjective Date patient seen: Apr 02, 2017 Neurologic/Psychiatric: Reports: anxiety, depressed, emotional problems Allergies: Coded Allergies: No Known Allergies (Unverified , 08/20/15) Subjective the pt is doing well c/o anxiety does not want rehab Objective Height (Feet): 5 Height (Inches): 9.00 Weight (Pounds): 175 General Appearance: no apparent distress, alert, overweight Neurologic: alert, oriented x 3, responsive, depressed affect Angella Mi M.D. Apr 05, 2017 17:26
--- NOTE | 2017-04-05 17:27 | General Progress Note ---
Assessment/Plan Status: stable, progressing Subjective Date patient seen: Apr 03, 2017 Neurologic/Psychiatric: Reports: depressed, emotional problems Allergies: Coded Allergies: No Known Allergies (Unverified , 08/20/15) Subjective the pt is doing well c/o anxiety does not want rehab Objective Height (Feet): 5 Height (Inches): 9.00 Weight (Pounds): 175 General Appearance: no apparent distress, alert Neurologic: alert, oriented x 3, responsive, depressed affect Angella Mi M.D. Apr 05, 2017 17:27
--- NOTE | 2017-04-06 13:00 | Discharge Summary 2 SIG ---
DATE OF ADMISSION: 03/28/2017 DATE OF DISCHARGE: 04/04/2017 REASON FOR ADMISSION: 76-year-old male was sent to emergency room for left femoral neck fracture. The patient was diagnosed with fracture in outside facility with x-ray earlier the same day. The patient lives in [facility]. He fell four days ago on the left side. He also hit a part of his head, but denied loss of consciousness or blackouts. He was on aspirin. He complained of pain and was unable to walk or elevate left leg. Hip and pelvis x-ray revealed acute fracture of left femoral neck. Femur x-ray revealed acute left femoral neck fracture. Chest x-ray revealed no evidence of acute cardiopulmonary pathology. CT of the head revealed no acute intracranial bleeding, mass effect, or edema. Moderate atrophy of the brain. Evidence of chronic small vessel disease involving white matter tracts. From the emergency department, Dr. Keane, orthopedic surgeon, was consulted. The patient was made NPO after midnight. The patient was consented for left hemiarthroplasty. All laboratories work was stable. EKG showed normal sinus rhythm with left bundle-branch block, which was chronic. The patient was admitted for surgical intervention. ADMITTING DIAGNOSES: 1. Left femoral neck fracture. 2. Hypertension. 3. End-stage systolic heart disease. 4. Automatic implantable cardioverter-defibrillator. 5. Parkinson disease. 6. Chronic left bundle-branch block. HOSPITAL STAY: The patient was admitted. Cardiology consult was requested. Echocardiogram revealed ejection fraction of 25% to 30% with global left ventricular hypokinesis, apical dyskinesis, asynchronous septal motion related to pacing. No evidence of left ventricular hypertrophy. No evidence of pericardial pleural effusion. Per criminal justice lawyer, the patient was in need of hip replacement due to fracture. Financial Services Associate seen the patient for surgical clearance. per criminal justice lawyer, the patient was at some risk of congestive heart failure, however, currently, was no evidence of acute congestive heart failure. The patient was noted to have low platelets in 90s, recommended to monitor platelets as well as watch intravenous fluid administration. Financial Services Associate cleared the patient for surgery. Utility Arborist followed the patient as well. The patient had AICD, which was interrogated in October 2016 and noted to be functioning properly. The patient with ejection fraction of 25% to 30%. Medical management of congestive heart failure was continued with beta-joe, YANNI inhibitor, and Aldactone. The patient had subsequently undergone left hip hemiarthroplasty on 03/29/2017. Course of recovery was uneventful. Pain management was addressed, and pain was controlled. Pain specialist followed. DVT and GI prophylaxis were provided. Bowel regimen instituted. Psychiatrist seen and evaluated the patient and diagnosed the patient with schizoaffective disorder. He optimized psychiatric medication regimen. The patient was working with physical and occupational therapists. Per physical therapy recommendations, the patient will benefit from short term rehabilitation. The patient was discharged to shelter facility for short-term rehabilitation after placement was arranged and secured. . FINAL DIAGNOSES: 1. Left femoral neck fracture. 2. Left hip pain. 3. Status post left hip hemiarthroplasty. 4. Hypertension. 5. End-stage systolic heart failure. 6. Dilated cardiomyopathy. 7. Chronic congestive heart failure. 8. History of cerebrovascular accident. 9. Automatic implantable cardioverter-defibrillator. 10. Parkinson disease. 11. Chronic left bundle-branch block. 12. Thrombocytopenia. 13. Schizoaffective disorder. DISCHARGE MEDICATIONS: See medication reconciliation list. DISCHARGE INSTRUCTIONS: The patient was discharged to shelter facility for short-term rehabilitation. Maria Isabel Tran M.D. I have been assigned to dictate discharge summary on this account and I was not involved in the patient's management. Precious SevillaNewyork-Presbyterian Brooklyn [facility] Hospitaljosh NZakPZak DR: RIKKI JOB#: [id number] CC: SELVIN
== END 2017-04-04 18:05 | DRG 301 ==
LOC: EMR 15:57 → 3E 16:03 → EDBEDREQ 16:37 → 3E 04-01 14:07
PROC: 0SRS0JZ Replacement of Left Hip Joint, Femoral Surface with Synthetic Substitute, Open Approach (ICD-10-PCS; principal; 2017-03-29 14:30)
DX: S72.002A Fracture of unspecified part of neck of left femur, initial encounter for closed fracture (principal); I42.0 Dilated cardiomyopathy; D69.6 Thrombocytopenia, unspecified; I50.84 End stage heart failure; I50.22 Chronic systolic (congestive) heart failure; F25.9 Schizoaffective disorder, unspecified; G20 Parkinson's disease; W19.XXXA Unspecified fall, initial encounter; Z95.810 Presence of automatic (implantable) cardiac defibrillator; Z86.73 Personal history of transient ischemic attack (TIA), and cerebral infarction without residual deficits; I10 Essential (primary) hypertension; I44.7 Left bundle-branch block, unspecified; I34.0 Nonrheumatic mitral (valve) insufficiency; G47.00 Insomnia, unspecified; F31.9 Bipolar disorder, unspecified
CPT/HCPCS: 36415; 70450; 71010; 72170; 80053; 82378; 82550; 82553; 83735; 84100; 84153; 84154; 84443; 85007; 85025; 85610; 85730; 86850; 86900; 86901; 87081; 93005; 93306; 94003; 94150; 99285; J2250